=== PATIENT | female | born 1960 | race Caucasian/White ===

== ENCOUNTER → 2016-08-30 | Outpatient (CLI) | payer MEDICARE, OTHER ==
--- NOTE | 2016-08-30 09:56 | USB ---
Reason for exam: follow-up at short interval from prior study. History: Patient is postmenopausal and is nulliparous. Took estrogen for 7 years. Took progesterone for 7 years. Physical Findings: Nurse did not find any significant physical abnormalities on exam. US Breast RT Right breast ultrasound includes all four quadrants, the retroareolar region and axilla. Finding demonstrates 6 x 4 x 7mm oval, solid, hyperechoic lesion at 3 o'clock, significantly smaller when compared to previous. These results were verbally communicated with the patient and result sheet given to the patient on 08/30/16. ASSESSMENT: Benign, BI-RAD 2 RECOMMENDATION: Routine screening mammogram of both breasts. (patient due now for mammogram)
== END | disposition home or self-care (01) ==
LOC: RADUSWWP 08:32
PROVIDERS: ATTEND Surgery
DX: N63 Unspecified lump in breast (principal)

== ENCOUNTER → 2017-08-25 | Outpatient (CLI) | payer MEDICARE ==
[2017-08-25 13:31] LABS: Anion Gap 11 mmol/L; Blood Urea Nitrogen 12 mg/dL (7-17); Calcium 9.8 mg/dL (8.4-10.2); Carbon Dioxide 34 mmol/L (22-30); Chloride 98 mmol/L (98-107); Glucose 106 mg/dL (74-99); Potassium 4.7 mmol/L (3.5-5.1); Sodium 143 mmol/L (137-145)
[2017-08-25 13:47] LABS: T4, Free (Free Thyroxine) 1.25 ng/dL (0.78-2.19)
[2017-08-25 22:30] LABS: Hemoglobin A1C 6.3 % (4.0-6.0)
== END ==
LOC: LABWHC1 12:28
PROVIDERS: ATTEND Internal Medicine
DX: E11.65 Type 2 diabetes mellitus with hyperglycemia (principal); E03.9 Hypothyroidism, unspecified
CPT/HCPCS: 36415; 80048; 83036; 84439; 84443

== ENCOUNTER → 2017-10-20 | Outpatient (CLI) | payer MEDICARE ==
[2017-10-20 15:11] LABS: T4, Free (Free Thyroxine) 1.3 ng/dL (0.78-2.19)
[2017-10-20 20:21] LABS: Hemoglobin A1C 6.2 % (4.0-6.0)
== END | disposition home or self-care (01) ==
LOC: LABWHC1 13:41
PROVIDERS: ATTEND Internal Medicine
DX: E03.9 Hypothyroidism, unspecified (principal)
CPT/HCPCS: 36415; 83036; 84439; 84443

== ENCOUNTER → 2017-11-17 | Outpatient (CLI) | payer MEDICARE ==
--- NOTE | 2017-11-18 07:48 | MM ---
Reason for exam: additional evaluation requested from prior study. Last mammogram was performed 1 year and 9 months ago. History: Patient is postmenopausal and is nulliparous. Took estrogen for 1 year. Took progesterone for 1 year. Physical Findings: Nurse did not find any significant physical abnormalities on exam. MG 3D Diag Mammo W/Cad ANKIT Bilateral CC, MLO, and XCCL view(s) were taken. Prior study comparison: February 16, 2016, right breast MG 3d diag mammo w/cad RT. July 17, 2015, bilateral MG screening mammo w CAD. The breast tissue is almost entirely fat. There is no discrete abnormality. These results were verbally communicated with the patient and result sheet given to the patient on 11/17/17. ASSESSMENT: Negative, BI-RAD 1 RECOMMENDATION: Routine screening mammogram of both breasts in 1 year.
--- NOTE | 2017-11-18 08:26 | BD ---
EXAMINATION TYPE: Axial Bone Density DATE OF EXAM: 11/17/2017 COMPARISON: NONE CLINICAL HISTORY: Z 78.0, postmenopausal without hormone replacement therapy Height: 60 Weight: 217.3 FRAX RISK QUESTIONS: Alcohol (3 or more units per day): no Family History (Parent hip fracture): no Glucocorticoids (More than 3mos): no (Ex: prednisone, prednisolone, methylprednisolone, dexamethasone, and hydrocortisone). History of Fracture in Adulthood: no Secondary Osteoporosis: 1. Type 1 Diabetes: no 2. Hyperthyroidism: no 3. Menopause before 45: yes 4. Malnutrition: no 5. Chronic liver disease: no Rheumatoid Arthritis: no Current Tobacco Use: no RISK FACTORS HISTORY OF: Surgery to Spine/Hip(right/left)/Wrist (right/left): spine When: 1975 Family History of Osteoporosis: yes Active: yes Diet low in dairy products/other sources of calcium: no Postmenopausal woman: 2006 Lost more than 2 inches in height since high school: yes Frequent falls: no MEDICATIONS: vit d Thyroid Medications:synthroid How Long: since 1995 Additional History: EXAM MEASUREMENTS: Bone mineral densitometry was performed using the [employer] System. Bone mineral density about the R hip (g/cm2): 1.001 Bone mineral density about the L hip (g/cm2): 1.027 T Score values are as follows: -----R Neck: -0.3 -----L Neck: -0.1 -----R Total: -0.1 -----L Total: -0.1 Bone mineral density : baseline Bone mineral density about the L Wrist (g/cm2): 0.501 T Score values are as follows: -----Dist. R+U: -3.5 -----Prox. R+U: -2.5 -----Radius total: -2.9 Bone mineral density : baseline IMPRESSION: Normal bone density NOTE: T-SCORE=SD OF THE YOUNG ADULT MEAN.
== END | disposition home or self-care (01) ==
LOC: RADBDWWP 14:25
PROVIDERS: ATTEND Family Medicine
DX: R92.8 Other abnormal and inconclusive findings on diagnostic imaging of breast (principal); Z78.0 Asymptomatic menopausal state
CPT/HCPCS: 77080; 77066; G0279; 77062

== ENCOUNTER → 2019-07-16 | Day surgery (SDC) | payer MEDICARE ==
[2019-07-14 14:55] VITALS: BMI 42.0
[~2019-07-16] MED LIST: LACTATED RINGERS 1,000 ML IV SCH; LIDOCAINE 1% 20 ML VIAL (10MG/ML) FOR IV START INTRADERMA ONE; LIDOCAINE 1% INJ 10MG/ML (20 ML MDV) ONE; PROPOFOL 10 MG/ML 20 ML VIAL IV ONE
[2019-07-16 10:11] VITALS: RESP 16; TEMP 98.5
--- NOTE | 2019-07-16 10:48 | P.PCN ---
Date of Procedure: 07/16/19 Procedure(s) Performed: BRIEF HISTORY: Patient is a 58-year-old pleasant female scheduled for an elective colonoscopy as a part of screening for colorectal neoplasia PROCEDURE PERFORMED: Colonoscopy with biopsy. PREOPERATIVE DIAGNOSIS: Screening for colon cancer. IV sedation per Anesthesia. PROCEDURE: After informed consent was obtained, the patient, was brought into the endoscopy unit. IV sedation was administered by Anesthesia under continuous monitoring. Digital rectal examination was normal. Initially the Olympus CF-160 flexible video colonoscope was then inserted in the rectum, gradually advanced into the cecum without any difficulty. Careful examination was performed as the scope was gradually being withdrawn. Ileocecal valve and the appendiceal orifice were visualized and appeared normal. Prep was excellent. Mucosa of the cecum, ascending colon, transverse colon, descending colon, sigmoid colon, and rectum appeared normal. There was a 3-4 mm polyp noted in the proximal rectum that was removed by cold biopsy. In the distal rectum there was erythema noted with friability of the mucosa suspicious for rectal prolapse versus proctitis and hence biopsies were done from this area. Retroflexion was performed in the rectum and no lesions were seen. The patient tolerated the procedure well. IMPRESSION: 3-4 mm millimeters proximal rectal polyp status post removal by cold biopsy Mucosal erythema and friability of the distal rectum rule out proctitis versus rectal prolapse RECOMMENDATIONS: Findings of this examination were discussed with the patient as well as her family. She was advised to follow with the biopsy result. The biopsy shows an adenoma she can have a repeat colonoscopy in 5 years.
[2019-07-16 11:21] VITALS: BP 119/87; PULSE 84
== END ==
LOC: ORWHC2ENDO 09:26
PROVIDERS: ATTEND Internal Medicine Gastroenterology
DX: Z12.11 Encounter for screening for malignant neoplasm of colon (principal); D12.8 Benign neoplasm of rectum; K62.1 Rectal polyp; K62.6 Ulcer of anus and rectum; I10 Essential (primary) hypertension; E78.5 Hyperlipidemia, unspecified; J45.909 Unspecified asthma, uncomplicated; F41.9 Anxiety disorder, unspecified; F32.9 Major depressive disorder, single episode, unspecified; M19.90 Unspecified osteoarthritis, unspecified site; G43.909 Migraine, unspecified, not intractable, without status migrainosus; Z97.2 Presence of dental prosthetic device (complete) (partial); Z79.84 Long term (current) use of oral hypoglycemic drugs; Z79.890 Hormone replacement therapy; Z79.899 Other long term (current) drug therapy; Z88.0 Allergy status to penicillin
CPT/HCPCS: 88305; 45380; J2001; J2704

== ENCOUNTER 2022-06-13 07:52 | Day surgery (SDC) | payer MEDICARE ==
[2022-06-11 13:38] VITALS: BMI 40.8
[~2022-06-13 07:52] MED LIST changes: +LIDOCAINE 1% (10MG/ML) FOR IV START INTRADERMA PRN; -LIDOCAINE 1% 20 ML VIAL (10MG/ML) FOR IV START INTRADERMA ONE; -LIDOCAINE 1% INJ 10MG/ML (20 ML MDV) ONE; +ONDANSETRON 4 MG/2 ML VIAL IVP PRN; -PROPOFOL 10 MG/ML 20 ML VIAL IV ONE
[2022-06-13 08:26] VITALS: RESP 20; TEMP 97
[2022-06-13] MEDS ORDERED: PROPOFOL 10 MG/ML 20 ML VIAL IV ONE (08:28)
[2022-06-13 08:30] LABS: Glucose,Whole Blood 111 mg/dL (70-110)
--- NOTE | 2022-06-13 08:34 | P.GSHP ---
History of Present Illness H&P Date: 06/13/22 CHIEF COMPLAINT: Anemia HISTORY OF PRESENT ILLNESS: The patient is a 61-year-old female who presents with anemia. Upper and lower endoscopy were offered for further evaluation and management. PAST MEDICAL HISTORY: Please see list. PAST SURGICAL HISTORY: Please see list. MEDICATIONS: Please see list. ALLERGIES: Please see list. SOCIAL HISTORY: No illicit drug use FAMILY HISTORY: No reports of Crohn disease or ulcerative colitis. REVIEW OF ORGAN SYSTEMS: CONSTITUTIONAL: No reports of fevers or chills. PHYSICAL EXAM: VITAL SIGNS: Stable GENERAL: Well-developed pleasant in no acute distress. HEENT: No scleral icterus. Extraocular movements grossly intact. Moist buccal mucosa. NECK: Supple without lymphadenopathy. CHEST: Unlabored respirations. Equal bilateral excursions. CARDIOVASCULAR: Regular rate and rhythm. Distal 2+ pulses. ABDOMEN: Soft, nondistended. MUSCULOSKELETAL: No clubbing, cyanosis, or edema. ASSESSMENT: 1. Anemia PLAN: 1. Recommend proceeding with an upper and lower endoscopy Past Medical History Past Medical History: Asthma, GI Bleed, Hyperlipidemia, Osteoarthritis (OA), Thyroid Disorder Additional Past Medical History / Comment(s): hx of bleeding ulcer and esophogitis , anemia, hx of migraines, takes metformin states for weight loss, denies high blood pressure or diabetes, hypothyroid, reports possible mini stroke, stress incontinence History of Any Multi-Drug Resistant Organisms: None Reported Past Surgical History: Back Surgery Additional Past Surgical History / Comment(s): uterine polyp removed, LEEP with colposcopy, D&C, states has dillard patsy in back, rectal prolapse surgery, cosmetic eye surgery, EGD, colonscopy Past Anesthesia/Blood Transfusion Reactions: No Reported Reaction, Motion Sickness Additional Past Anesthesia/Blood Transfusion Reaction / Comment(s): had blood transfusion reports possible antibodies Past Psychological History: Anxiety, Depression Smoking Status: Never smoker Past Alcohol Use History: None Reported Past Drug Use History: None Reported - Past Family History Brother(s) Family Medical History: Cancer Additional Family Medical History / Comment(s): pancreatic, AAA Mother Family Medical History: Cancer Additional Family Medical History / Comment(s): lung Sister(s) Family Medical History: Deep Vein Thrombosis (DVT) Additional Family Medical History / Comment(s): AAA Father Additional Family Medical History / Comment(s): AAA Medications and Allergies Home Medications Medication Instructions Recorded Confirmed Type Cholecalciferol [Vitamin D3] 5,000 unit PO DAILY@1200 06/30/15 06/11/22 History Cyclobenzaprine [Flexeril] 10 mg PO HS 06/30/15 06/11/22 History DULoxetine HCL [Cymbalta] 120 mg PO DAILY 06/30/15 06/11/22 History Ferrous Sulfate [Feosol] 325 mg PO DAILY 06/30/15 06/11/22 History Fluticasone Propionate [Flovent 2 puff INHALATION BID 06/30/15 06/11/22 History Hfa 220MCG] Furosemide [Lasix] 40 mg PO DAILY 06/30/15 06/11/22 History Hydrocodone/Acetaminophen [[place] 1 tab PO Q6HR PRN 06/30/15 06/11/22 History 5-325] Loratadine [Claritin] 10 mg PO DAILY 06/30/15 06/11/22 History Montelukast Sodium [Singulair] 10 mg PO HS 06/30/15 06/11/22 History Potassium Chloride [Klor-Con] 20 meq PO DAILY 06/30/15 06/11/22 History Verapamil HCl [Verapamil ER] 120 mg PO DAILY 06/30/15 06/11/22 History metFORMIN HCL [Glucophage] 500 mg PO BID 06/30/15 06/11/22 History ALPRAZolam [Xanax] 0.25 mg PO BID PRN 07/14/19 06/11/22 History Albuterol Inhaler [Ventolin Hfa 1 - 2 puff INHALATION RT-Q6H PRN 07/14/19 06/11/22 History Inhaler] Atorvastatin [Lipitor] 80 mg PO HS 07/14/19 06/11/22 History Levothyroxine Sodium 100 mcg PO DAILY 07/14/19 06/11/22 History Multivitamins, Thera [Multivitamin 1 tab PO DAILY 07/14/19 06/11/22 History (formulary)] buPROPion XL [Wellbutrin Xl] 150 mg PO QAM 07/14/19 06/11/22 History Omeprazole 40 mg PO DAILY 06/11/22 06/11/22 History Vitamin B Complex 1 each PO 06/11/22 History Allergies Allergy/AdvReac Type Severity Reaction Status Date / Time Penicillins Allergy Rash/Hives Verified 06/11/22 13:12 Surgical - Exam Vital Signs Temp Pulse Resp BP Pulse Ox 97 F L 104 H 20 136/87 98 06/13/22 08:24 06/13/22 08:24 06/13/22 08:24 06/13/22 08:24 06/13/22 08:24 Results - Labs Abnormal Lab Results - Last 24 Hours (Table) 06/13/22 Range/Units 08:26 POC Glucose (mg/dL) 111 H (70-110) mg/dL
[2022-06-13 09:12] VITALS: BP 116/71; PULSE 78
--- NOTE | 2022-06-13 09:26 | P.PCN ---
Date of Procedure: 06/13/22 Description of Procedure: PREOPERATIVE DIAGNOSIS: Anemia GI bleed POSTOPERATIVE DIAGNOSIS: Gastroesophageal reflux disease. Morbid obesity. Gastritis. Diaphragmatic hiatal hernia OPERATION: Esophagogastroduodenoscopy with biopsies along antrum and duodenum SURGEON: Tonya Fierro MD ANESTHESIA: MAC. INDICATIONS: The patient is a 61-year-old female who presents with history of GI bleed and anemia. Benefits and risks of the procedure were described. Informed consent was obtained. DESCRIPTION: The patient was brought into the endoscopy suite and laid in the left lateral decubitus position. An Olympus gastroscope was passed along the posterior oropharynx down to the distal esophagus where the squamocolumnar junction was encountered at 30 cm from the incisors. The stomach was entered and no bile reflux was found. Additional findings are listed below. Biopsies with cold forceps were obtained of the antrum. The first through third portion of the duodenum was examined. Retroflexion of the scope confirmed Hill grade 4 lower esophageal valve. The squamocolumnar junction demonstrated LA grade B erosive esophagitis. The stomach was desufflated. The patient tolerated the procedure well. FINDINGS: Squamocolumnar junction 30 cm from the incisors. Diaphragmatic hiatus at 40 cm. Hiatal hernia, 10 cm, paraesophageal, fixed Hill grade 4 lower esophageal valve. LA grade B erosive esophagitis. Biopsies obtained of duodenum Chronic gastritis. Biopsies obtained RECOMMENDATIONS: 1. Upper endoscopy as needed. 2. Recommend esophagram 3. Recommend repair paraesophageal hiatal hernia for symptomatic anemia
--- NOTE | 2022-06-13 09:34 | P.PCN ---
Date of Procedure: 06/13/22 Description of Procedure: PREOPERATIVE DIAGNOSIS: GI bleed Anemia POSTOPERATIVE DIAGNOSIS: Poor prep with solid stool Constipation OPERATION: Colonoscopy to sigmoid colon, aborted due to poor prep SURGEON: Tonya Fierro MD. ANESTHESIA: MAC. INDICATIONS: The patient is a 61-year-old female who presents with anemia. Benefits and risks were described and informed consent was obtained. DESCRIPTION OF PROCEDURE: The patient had undergone bowel prep. The patient had been brought into the endoscopy room and laid in the left lateral decubitus position. After adequate intravenous sedation, the rectum was examined with 2% lidocaine jelly. External hemorrhoids were encountered. The rectal tone was within normal limits. No lesions were palpated in the rectal vault. An Olympus colonoscope was inserted and sigmoid colon were liquid and solid stools were found. Solid stool was obstructing passage of the scope beyond the distal sigmoid colon. The procedure was aborted. No inflamed hemorrhoids were identified. The colonoscope was removed. Withdrawal time was over 6 minutes. FINDINGS: [place] preparation quality scale 5 (1-5) External prolapsed hemorrhoids, grade 2 Scope advanced to the sigmoid colon. Poor prep with solid stool to distal sigmoid colon, nondiagnostic and aborted RECOMMENDATIONS: Recommend prolonged bowel prep 3-5 days. Repeat colonoscopy in 3 months, August 2022 Plan - Discharge Summary New Discharge Prescriptions: Continue Cholecalciferol [Vitamin D3 (25 Mcg = 1000 Iu)] 5,000 unit PO DAILY@1200 Ferrous Sulfate [Feosol] 325 mg PO DAILY metFORMIN HCL [Glucophage] 500 mg PO BID Hydrocodone/Acetaminophen [[place] 5-325] 1 tab PO Q6HR PRN PRN Reason: Pain Cyclobenzaprine [Flexeril] 10 mg PO HS Fluticasone Propionate [Flovent Hfa 220 mcg] 2 puff INHALATION BID DULoxetine HCL [Cymbalta] 120 mg PO DAILY Montelukast Sodium [Singulair] 10 mg PO HS Loratadine [Claritin] 10 mg PO DAILY Furosemide [Lasix] 40 mg PO DAILY Verapamil HCl [Verapamil ER] 120 mg PO DAILY Potassium Chloride [Klor-Con Packets] 20 meq PO DAILY buPROPion XL [Wellbutrin XL] 150 mg PO QAM Multivitamins, Thera [Multivitamin (formulary)] 1 tab PO DAILY Albuterol Inhaler [Ventolin Hfa Inhaler] 1 - 2 puff INHALATION RT-Q6H PRN PRN Reason: Shortness Of Breath ALPRAZolam [Xanax] 0.25 mg PO BID PRN PRN Reason: Anxiety Atorvastatin [Lipitor] 80 mg PO HS Levothyroxine Sodium 100 mcg PO DAILY Omeprazole 40 mg PO DAILY Vitamin B Complex 1 each PO Discharge Medication List Cholecalciferol [Vitamin D3 (25 Mcg = 1000 Iu)] 5,000 unit PO DAILY@1200 06/30/15 [History] Cyclobenzaprine [Flexeril] 10 mg PO HS 06/30/15 [History] DULoxetine HCL [Cymbalta] 120 mg PO DAILY 06/30/15 [History] Ferrous Sulfate [Feosol] 325 mg PO DAILY 06/30/15 [History] Fluticasone Propionate [Flovent Hfa 220 mcg] 2 puff INHALATION BID 06/30/15 [History] Furosemide [Lasix] 40 mg PO DAILY 06/30/15 [History] Hydrocodone/Acetaminophen [[place] 5-325] 1 tab PO Q6HR PRN 06/30/15 [History] Loratadine [Claritin] 10 mg PO DAILY 06/30/15 [History] Montelukast Sodium [Singulair] 10 mg PO HS 06/30/15 [History] Potassium Chloride [Klor-Con Packets] 20 meq PO DAILY 06/30/15 [History] Verapamil HCl [Verapamil ER] 120 mg PO DAILY 06/30/15 [History] metFORMIN HCL [Glucophage] 500 mg PO BID 06/30/15 [History] ALPRAZolam [Xanax] 0.25 mg PO BID PRN 07/14/19 [History] Albuterol Inhaler [Ventolin Hfa Inhaler] 1 - 2 puff INHALATION RT-Q6H PRN 07/14/19 [History] Atorvastatin [Lipitor] 80 mg PO HS 07/14/19 [History] Levothyroxine Sodium 100 mcg PO DAILY 07/14/19 [History] Multivitamins, Thera [Multivitamin (formulary)] 1 tab PO DAILY 07/14/19 [History] buPROPion XL [Wellbutrin XL] 150 mg PO QAM 07/14/19 [History] Omeprazole 40 mg PO DAILY 06/11/22 [History] Vitamin B Complex 1 each PO 06/11/22 [History] Follow up Appointment(s)/Referral(s): Tonya Fierro MD [STAFF PHYSICIAN] - 07/02/22 Patient Instructions/Handouts: *Surgery [facility] - (Anesthesia) Endoscopy Discharge Instructions, Hiatal Hernia (DC) Discharge Disposition: HOME SELF-CARE
== END 2022-06-13 10:11 | disposition home or self-care (01) ==
LOC: ORWHC2ENDO 07:52
PROVIDERS: ATTEND Surgery Plastic and Reconstructive Surgery
DX: K29.50 Unspecified chronic gastritis without bleeding (principal); E66.01 Morbid (severe) obesity due to excess calories; K44.9 Diaphragmatic hernia without obstruction or gangrene; K21.9 Gastro-esophageal reflux disease without esophagitis; K59.00 Constipation, unspecified; D50.0 Iron deficiency anemia secondary to blood loss (chronic); E78.5 Hyperlipidemia, unspecified; F32.A Depression, unspecified; F41.9 Anxiety disorder, unspecified; J45.909 Unspecified asthma, uncomplicated; M19.90 Unspecified osteoarthritis, unspecified site; Z79.51 Long term (current) use of inhaled steroids; Z79.84 Long term (current) use of oral hypoglycemic drugs; Z79.899 Other long term (current) drug therapy; Z88.0 Allergy status to penicillin
CPT/HCPCS: 88305; 43239; 45330; J2704; 45378

== ENCOUNTER → 2022-07-17 | Outpatient (CLI) | payer MEDICARE ==
[2022-07-17 23:29] LABS: Basophils # (A) 0.02 X 10*3/uL (0.00-0.10); Basophils % (A) 0.3 %; Eosinophils # (A) 0.11 X 10*3/uL (0.04-0.35); Eosinophils % (A) 1.5 %; HCT 45.1 % (37.2-46.3); HGB 13.9 g/dL (12.0-15.0); Immature Grans, Automated 0.6 %; Lymphocytes # (A) 1.89 X 10*3/uL (0.90-5.00); Lymphocytes % (A) 26.5 %; MCH 28.3 pg (27.0-32.0); MCHC 30.8 g/dL (32.0-37.0); MCV 91.9 fL (80.0-97.0); Monocytes # (A) 0.55 X 10*3/uL (0.20-1.00); Monocytes % (A) 7.7 %; NRBC Per 100 WBC 0 /100 WBCS (0.0-0.0); Neutrophils # (A) 4.51 X 10*3/uL (1.80-7.70); Neutrophils % (A) 63.4 %; Platelet Count 259 X 10*3/uL (140-440); RBC 4.91 X 10*6/uL (4.10-5.20); RDW 14.4 % (11.5-14.5); WBC 7.12 X 10*3/uL (4.50-10.00)
--- NOTE | 2022-07-18 09:29 | CT ---
EXAMINATION TYPE: CT chest w con CT DLP: 509.20 mGycm, Automated exposure control for dose reduction was used. DATE OF EXAM: 07/17/2022 4:22 PM COMPARISON: CT chest 06/07/2011. CLINICAL INDICATION:Female, 61 years old with history of R22.2, hiatal hernia and chest discomfort af ter eating TECHNIQUE: Multiple axial images were obtained through the chest. Sagittal and coronal reformats were created for review. Contrast used:70 mL of Isovue 300 with IV Contrast Oral contrast used: none. FINDINGS: LUNGS/ PLEURA: No evidence for focal consolidation, pneumothorax or pleural effusion. Mild atelectasi s changes in the left lower lung secondary to large hiatal hernia. AIRWAY: Patent and unremarkable. HEART: Size within normal limits. MEDIASTINUM: No gross evidence of adenopathy. Containing part of the hiatal hernia in the lower aspec t. VASCULATURE: No aortic aneurysm. MUSCULOSKELETAL: No acute osseous abnormalities, fixation hardware is seen within the back which appe ars intact. There is postsurgical alignment of the spine. Scoliosis changes are present. SOFT TISSUES/LYMPH NODES: Unremarkable. LOWER NECK: No significant findings. UPPER ABDOMEN: There is a large hiatal hernia with majority of the stomach sitting above the diaphrag m. IMPRESSION: Large hiatal hernia with the majority of the stomach sitting above the diaphragm.
== END | disposition home or self-care (01) ==
LOC: RADCTMAIN 15:48
PROVIDERS: ATTEND Surgery Plastic and Reconstructive Surgery
DX: K44.9 Diaphragmatic hernia without obstruction or gangrene (principal); R22.2 Localized swelling, mass and lump, trunk; D50.9 Iron deficiency anemia, unspecified
CPT/HCPCS: 85025; 71260; Q9967

== ENCOUNTER → 2023-02-26 | Outpatient (CLI) | payer MEDICARE ==
--- NOTE | 2023-02-27 08:54 | CA ---
Transthoracic Echo Report Name: Charlotte Munson Age: 62 Gender: F : 1960 Exam Date: 02/26/2023 17:26 Exam Location: [facility] Ht (in): 60 Wt (lb): 209 Ordering Physician: Doc Escobar MD Attending/Referring Phys: Brewery Representative Vivienne Coley [facility] Procedure CPT: Indications: Z82.49 FAMILY HX OF ISCHEM HEART DIS AND OTH DIS O Cardiac Hx: Technical Quality: Fair Contrast 1: Total Dose (mL): Contrast 2: Total Dose (mL): MEASUREMENTS (Male / Female) Normal Values 2D ECHO LV Diastolic Diameter PLAX 3.6 cm 4.2 - 5.9 / 3.9 - 5.3 cm LV Systolic Diameter PLAX 2.7 cm IVS Diastolic Thickness 1.0 cm 0.6 - 1.0 / 0.6 - 0.9 cm LVPW Diastolic Thickness 1.0 cm 0.6 - 1.0 / 0.6 - 0.9 cm LV Relative Wall Thickness 0.5 LVOT Diameter 2.0 cm Ascending Aorta Diameter 4.1 cm M-MODE Aortic Root Diameter MM 3.2 cm AV Cusp Separation MM 2.4 cm DOPPLER AV Peak Velocity 146.9 cm/s AV Peak Gradient 8.6 mmHg AV Mean Velocity 101.3 cm/s AV Mean Gradient 4.5 mmHg AV Velocity Time Integral 24.5 cm LVOT Peak Velocity 102.9 cm/s LVOT Peak Gradient 4.2 mmHg LVOT Velocity Time Integral 18.0 cm LVOT Stroke Volume 55.0 cm??? LVOT Stroke Volume Index 28.9 ml/m??? LVOT Cardiac Index 2483.6 cm???/min???m??? AV Area Cont Eq vti 2.2 cm??? AV Area Cont Eq pk 2.1 cm??? Mitral E Point Velocity 61.4 cm/s Mitral A Point Velocity 74.9 cm/s Mitral E to A Ratio 0.8 MV Deceleration Time 150.3 ms LV E' Lateral Velocity 10.2 cm/s Mitral E to LV E' Lateral Ratio 6.0 LV E' Septal Velocity 6.0 cm/s Mitral E to LV E' Septal Ratio 10.3 TR Peak Velocity 194.0 cm/s TR Peak Gradient 15.1 mmHg Right Atrial Pressure 3.0 mmHg Pulmonary Artery Systolic Pressu 18.1 mmHg Right Ventricular Systolic Press 18.1 mmHg FINDINGS Left Ventricle Mildly increased left ventricular wall thickness. Left ventricular cavity size normal. Normal left ventricular systolic function with no obvious regional wall motion abnormalities. Left ventricular ejection fraction is estimated at 55- 60%. Right Ventricle Mild right ventricular dilatation. Right Atrium Normal right atrial size. Left Atrium Normal left atrial size. Mitral Valve Structurally normal mitral valve.no mitral stenosis, regurgitation or prolapse. Aortic Valve Trileaflet aortic valve. Trace aortic regurgitation. Tricuspid Valve Structurally normal tricuspid valve. Trace tricuspid regurgitation. Pulmonic Valve Structurally normal pulmonic valve. No pulmonic regurgitation. Pericardium No pericardial effusion. Aorta Normal size aortic root and mildly dilated proximal ascending aorta. CONCLUSIONS 1. Normal left ventricular size and systolic function 2. Trace tricuspid and aortic regurgitation Previewed by: Dr. Joshua Forman MD (Electronically Signed) Final Date: 27 February 2023 08:53
== END | disposition home or self-care (01) ==
LOC: RADECHMAIN 17:22
PROVIDERS: ATTEND Family Medicine
DX: I08.2 Rheumatic disorders of both aortic and tricuspid valves (principal); Z82.49 Family history of ischemic heart disease and other diseases of the circulatory system
CPT/HCPCS: 93306

== ENCOUNTER 2023-09-30 18:41 | Inpatient (IN) | payer MEDICARE ==
[2023-09-30] MEDS: SODIUM CHLORIDE 0.9% 1,000 ML IV SCH (19:21)
[2023-09-30 19:28] LABS: Basophils % (A) 1 %; Eosinophils # (A) 0.1 k/uL (0-0.7); Eosinophils % (A) 1 %; HCT 42.3 % (34.0-46.0); HGB 14.1 gm/dL (11.4-16.0); Lymphocytes # (A) 0.2 k/uL (1.0-4.8); Lymphocytes % (A) 3 %; MCH 30.3 pg (25.0-35.0); MCHC 33.4 g/dL (31.0-37.0); MCV 90.8 fL (80.0-100.0); Mean Platelet Volume 8.1; Monocytes # (A) 0.2 k/uL (0-1.0); Monocytes % (A) 2 %; Neutrophils # (A) 6.3 k/uL (1.3-7.7); Neutrophils % (A) 93 %; Platelet Count 203 k/uL (150-450); RBC 4.66 m/uL (3.80-5.40); RDW 12.9 % (11.5-15.5); WBC 6.8 k/uL (3.8-10.6)
[2023-09-30 19:36] LABS: INR 0.9 (<1.2); Partial Thromboplastin Time 25.1 sec (22.0-30.0); Prothrombin Time 10.1 sec (10.0-12.5)
[2023-09-30 19:42] LABS: ALT 29 U/L (4-34); AST 33 U/L (14-36); African American GFR (CKD) >90 (>60 ml/min/1.73 sqM); Albumin 3.9 g/dL (3.5-5.0); Alkaline Phosphatase 103 U/L (38-126); Anion Gap 12 mmol/L; Blood Urea Nitrogen 20 mg/dL (7-17); Calcium 8.7 mg/dL (8.4-10.2); Carbon Dioxide 25 mmol/L (22-30); Chloride 96 mmol/L (98-107); Glucose 99 mg/dL (74-99); Non-African American GFR(CKD) 80 (>60 ml/min/1.73 sqM); Potassium 3.4 mmol/L (3.5-5.1); Sodium 133 mmol/L (137-145); Total Bilirubin 0.8 mg/dL (0.2-1.3); Total Protein 6.6 g/dL (6.3-8.2)
--- NOTE | 2023-09-30 20:21 | CT ---
EXAMINATION TYPE: CT brain wo con CT DLP: 1075.4 mGycm, Automated exposure control for dose reduction was used. DATE OF EXAM: 09/30/2023 8:12 PM COMPARISON: None. CLINICAL INDICATION:Female, 62 years old with history of ams, AMS TECHNIQUE: Brain: Axial CT images of the brain were obtained with coronal and sagittal reformats created and rev iewed. Contrast used: None. Oral contrast used: None. FINDINGS: Brain: Extra-axial spaces: No abnormal extra-axial fluid collections. Ventricular system: Within normal limits Cerebral parenchyma: No acute intraparenchymal hemorrhage or mass effect. The donaldson-white junction is well differentiated. Scattered hypoattenuating areas are seen within the white matter. Cerebellum: Unremarkable. Mass effect: No evidence of midline shift. Intracranial vasculature: Atherosclerotic calcifications of the intracranial vessels. Soft tissues: Normal. Calvarium/osseous structures: No depressed skull fracture. Paranasal sinuses and mastoid air cells: Mild scattered paranasal sinus disease. Visualized orbits: Orbital contents are intact. IMPRESSION: 1. No acute intracranial process. 2. Nonspecific white matter changes, likely secondary to chronic small vessel ischemic disease.
--- NOTE | 2023-09-30 20:28 | XR ---
EXAMINATION TYPE: XR chest 2V DATE OF EXAM: 09/30/2023 8:22 PM CLINICAL INDICATION:Female, 62 years old with history of Fever; [facility] COMPARISON: CT chest 07/17/2022 TECHNIQUE: XR chest 2V Frontal and lateral views of the chest. FINDINGS: Lungs/Pleura: Bilateral hazy airspace opacities are identified in the lung bases. No evidence of larg e effusion or pneumothorax. Pulmonary vascularity: Unremarkable. Heart/mediastinum: Cardiomediastinal silhouette is unremarkable. Redemonstrated large hiatal hernia contained within the left hemithorax. Musculoskeletal: No acute osseous pathology. Fixation hardware is seen extending through the thoracic spine. IMPRESSION: 1. Bilateral hazy airspace opacities which may represent developing infectious/inflammatory process. 2. Redemonstrated large hiatal hernia.
--- NOTE | 2023-09-30 20:29 | ED ---
General Adult HPI - General Chief complaint: Altered Mental Status Stated complaint: AMS Time Seen by Provider: 09/30/23 19:10 Source: patient, EMS Mode of arrival: EMS Limitations: no limitations - History of Present Illness Initial comments: Dictation was produced using [employer] dictation software. please excuse any grammatical, word or spelling errors. Chief Complaint: 62-year-old female presents for altered mental status History of Present Illness: Patient 62-year-old female presents with altered mental status. Patient was seen driving erratically by law enforcement. Patient was pulled over and was brought to the emergency department after she was thought to be altered. Patient states that she was dog sitting and on her way home. Patient denies any complaints. Some clear what patient's baseline is. She has history of asthma, paraesophageal hernia dyslipidemia and thyroid disease. The ROS documented in this emergency department record has been reviewed and confirmed by me. Those systems with pertinent positive or negative responses have been documented in the HPI. All other systems are other negative and/or noncontributory. - Related Data Home Medications Medication Instructions Recorded Confirmed DULoxetine HCL [Cymbalta] 120 mg PO DAILY 06/30/15 09/30/23 Loratadine [Claritin] 10 mg PO DAILY 06/30/15 09/30/23 Montelukast Sodium [Singulair] 10 mg PO DAILY 06/30/15 09/30/23 Verapamil HCl [Verapamil ER] 120 mg PO DAILY 06/30/15 09/30/23 Albuterol Inhaler [Ventolin Hfa 1 puff INHALATION RT-Q6H PRN 07/14/19 09/30/23 Inhaler] Levothyroxine Sodium 100 mcg PO DAILY 07/14/19 09/30/23 Atorvastatin Calcium [Lipitor] 80 mg PO DAILY 09/30/23 09/30/23 Fluticasone Propion/Salmeterol 2 puff INHALATION RT-BID 09/30/23 09/30/23 [Advair Hfa 115-21 Mcg Inhaler] Furosemide [Lasix] 40 mg PO DAILY 09/30/23 09/30/23 Pantoprazole [Protonix] 40 mg PO DAILY 09/30/23 09/30/23 Potassium Chloride ER [K-Dur 20] 20 meq PO DAILY 09/30/23 09/30/23 buPROPion XL [Wellbutrin XL] 300 mg PO DAILY 09/30/23 09/30/23 Allergies Allergy/AdvReac Type Severity Reaction Status Date / Time Penicillins Allergy Rash/Hives Verified 09/30/23 20:05 Review of Systems ROS Statement: Those systems with pertinent positive or pertinent negative responses have been documented in the HPI. ROS Other: All systems not noted in ROS Statement are negative. Past Medical History Past Medical History: Asthma, GI Bleed, Hyperlipidemia, Osteoarthritis (OA), Thyroid Disorder Additional Past Medical History / Comment(s): hx of bleeding ulcer and esophogitis , anemia, hx of migraines, takes metformin states for weight loss, denies high blood pressure or diabetes, hypothyroid, reports possible mini stroke, stress incontinence History of Any Multi-Drug Resistant Organisms: None Reported Past Surgical History: Back Surgery Additional Past Surgical History / Comment(s): uterine polyp removed, LEEP with colposcopy, D&C, states has dillard patsy in back, rectal prolapse surgery, cosmetic eye surgery, EGD, colonscopy Past Anesthesia/Blood Transfusion Reactions: No Reported Reaction, Motion Sickness Additional Past Anesthesia/Blood Transfusion Reaction / Comment(s): had blood transfusion reports possible antibodies Past Psychological History: Anxiety, Depression Smoking Status: Never smoker Past Alcohol Use History: None Reported Past Drug Use History: None Reported - Past Family History Brother(s) Family Medical History: Cancer Additional Family Medical History / Comment(s): pancreatic, AAA Mother Family Medical History: Cancer Additional Family Medical History / Comment(s): lung Sister(s) Family Medical History: Deep Vein Thrombosis (DVT) Additional Family Medical History / Comment(s): AAA Father Additional Family Medical History / Comment(s): AAA General Exam - General Exam Comments Initial Comments: PHYSICAL EXAM: General Impression: Alert and oriented x3, not in acute distress HEENT: Normocephalic atraumatic, extra-ocular movements intact, pupils equal and reactive to light bilaterally, mucous membranes moist. Cardiovascular: Heart regular rate and rhythm Chest: Able to complete full sentences, no retractions, no tachypnea Abdomen: abdomen soft, non-tender, non-distended, no organomegaly Musculoskeletal: Pulses present and equal in all extremities, no peripheral e triston Motor: no focal deficits noted Neurological: CN II-XII grossly intact, no focal motor or sensory deficits noted Skin: Intact with no visualized rashes Psych: Normal affect and mood Limitations: no limitations Course Vital Signs 09/30/23 09/30/23 18:44 20:53 Temperature 102.9 F H 99.8 F H Pulse Rate 112 H 89 Respiratory 18 19 Rate Blood Pressure 123/87 118/73 O2 Sat by Pulse 94 L 95 Oximetry - Reevaluation(s) Reevaluation #1: 09/30/23 20:29 Patient seen and evaluated in bed #3. Vital signs upon arrival shows temperature 102.9, rest of l vital signs within acceptable limits. EKG Findings - EKG Comments: EKG Findings:: My EKG interpretation: Ventricular rate 107, sinus tachycardia,. 139, cures 90, QTc 412. No NV prolongation, no QTC prolongation, no ST or T-wave changes noted. Overall, this EKG is unremarkable Medical Decision Making - Medical Decision Making Was pt. sent in by a medical professional or institution (, PA, FOURDRINIER MACHINE TENDER, urgent care, hospital, or care home...) When possible be specific @ -No Did you speak to anyone other than the patient for history (EMS, parent, family, police, friend...)? What history was obtained from this source @ -EMS who provided report to nurse Did you review nursing and triage notes (agree or disagree)? Why? @ -I reviewed and agree with nursing and triage notes Were old charts reviewed (outside hosp., previous admission, EMS record, old EKG, old radiological studies, urgent care reports/EKG's, care home records)? Report findings @ -No old charts were reviewed Differential Diagnosis (chest pain, altered mental status, abdominal pain women, abdominal pain men, vaginal bleeding, musculoskeletal, weakness, fever, dyspnea, syncope, headache, dizziness, GI bleed, back pain, seizure, CVA, palpatations, mental health)? @ -Differential Fever: Pneumonia, viral URI, endocarditis, myocarditis, pericarditis, otitis, sinusitis, peritonsillar Abscess, retropharyngeal Abscess, epiglottitis, peritonitis, appendicitis, Leeanna cystitis, diverticulitis, hepatitis, colitis, UTI, PID, TOA, pyelonephritis, prostatitis, epididymitis, meningitis, encephalit is, pulmonary embolism, CVA, thyroid storm, pancreatitis, adrenal crisis, cavernous sinus thrombosis, this is not meant to be an all-inclusive list. EKG interpreted by me (3pts min.). @ -Pending X-rays interpreted by me (1pt min.). @ -Two-view chest x-ray shows bilateral hazy airspace opacities concerning for pneumonia CT interpreted by me (1pt min.). @ -CT brain is nonacute U/S interpreted by me (1pt. min.). @ -None done What testing was considered but not performed or refused? (CT, X-rays, U/S, labs)? Why? @ -None What meds were considered but not given or refused? Why? @ -None Did you discuss the management of the patient with other professionals (professionals i.e. , PA, FOURDRINIER MACHINE TENDER, lab, RT, psych nurse, social media executive, event specialist product demonstrator, teacher, rating officer, top case assembler)? Give summary @ -Case discussed with hospitalist for admission Was smoking cessation discussed for >3mins.? @ -No Was critical care preformed (if so, how long)? @ -No Were there social determinants of health that impacted care today? How? (Homelessness, low income, unemployed, alcoholism, drug addiction, transpor tation, low edu. Level, literacy, decrease access to med. care, shelter, rehab)? @ -No Was there de-escalation of care discussed even if they declined (Discuss DNR or withdrawal of care, Hospice)? DNR status @ -No What co-morbidities impacted this encounter? (DM, HTN, Smoking, COPD, CAD, Cancer, CVA, ARF, Chemo, Hep., AIDS, mental health diagnosis, sleep apnea, morbid obesity)? @ -None Was patient admitted / discharged? Hospital course, mention meds given and route, prescriptions, significant lab abnormalities, going to OR and other pertinent info. @ -62-year-old female presents to the emergency department for altered mental status. Vital signs upon arrival shows pyrexia of 102.9. Heart rate of 112, rest of vital signs within acceptable limits. Laboratory evaluation obtained. No leukocytosis. Coag panel is negative. Metabolic panel is within acceptable limits. Chest x-ray shows pneumonia. CT scan the brain is negative. Patient started on antibiotics. Pending viral swabs. Patient be admitted to observation. Undiagnosed new problem with uncertain prognosis? @ -No Drug Therapy requiring intensive monitoring for toxicity (Heparin, Nitro, Insulin, Cardizem)? @ -No Were any procedures done? @ -No Diagnosis/symptom? Acute, or Chronic, or Acute on Chronic? Uncomplicated (without systemic symptoms) or Complicated (systemic symptoms)? @ -Pneumonia Side effects of treatment? @ -No Exacerbation, Progression, or Severe Exacerbation? @ -No Poses a threat to life or bodily function? How? (Chest pain, [place], [place], pneumonia, PE, COPD, DKA, ARF, appy, cholecystitis, CVA, Diverticulitis, Homicidal, Suicidal, threat to staff... and all critical care pts) @ -yes - Lab Data Result diagrams: 09/30/23 19:18 09/30/23 19:18 Lab Results 09/30/23 09/30/23 09/30/23 Range/Units 19:18 19:18 19:18 WBC 6.8 (3.8-10.6) k/uL RBC 4.66 (3.80-5.40) m/uL Hgb 14.1 (11.4-16.0) gm/dL Hct 42.3 (34.0-46.0) % MCV 90.8 (80.0-100.0) fL MCH 30.3 (25.0-35.0) pg MCHC 33.4 (31.0-37.0) g/dL RDW 12.9 (11.5-15.5) % Plt Count 203 (150-450) k/uL MPV 8.1 Neutrophils % 93 % Lymphocytes % 3 % Monocytes % 2 % Eosinophils % 1 % Basophils % 1 % Neutrophils # 6.3 (1.3-7.7) k/uL Lymphocytes # 0.2 L (1.0-4.8) k/uL Monocytes # 0.2 (0-1.0) k/uL Eosinophils # 0.1 (0-0.7) k/uL Basophils # 0.0 (0-0.2) k/uL PT 10.1 (10.0-12.5) sec INR 0.9 (<1.2) APTT 25.1 (22.0-30.0) sec Sodium 133 L (137-145) mmol/L Potassium 3.4 L (3.5-5.1) mmol/L Chloride 96 L (98-107) mmol/L Carbon Dioxide 25 (22-30) mmol/L Anion Gap 12 mmol/L BUN 20 H (7-17) mg/dL Creatinine 0.80 (0.52-1.04) mg/dL Est GFR (CKD-EPI)AfAm >90 (>60 ml/min/1.73 sqM) Est GFR (CKD-EPI)NonAf 80 (>60 ml/min/1.73 sqM) Glucose 99 (74-99) mg/dL Plasma Lactic Acid Rodríguez (0.7-2.0) mmol/L Calcium 8.7 (8.4-10.2) mg/dL Total Bilirubin 0.8 (0.2-1.3) mg/dL AST 33 (14-36) U/L ALT 29 (4-34) U/L Alkaline Phosphatase 103 (38-126) U/L Total Protein 6.6 (6.3-8.2) g/dL Albumin 3.9 (3.5-5.0) g/dL Urine Color Urine Appearance (Clear) Urine pH (5.0-8.0) Ur Specific [place] (1.001-1.035) Urine Protein (Negative) Urine Glucose (UA) (Negative) Urine Ketones (Negative) Urine Blood (Negative) Urine Nitrite (Negative) Urine Bilirubin (Negative) Urine Urobilinogen (<2.0) mg/dL Ur Leukocyte Esterase (Negative) 09/30/23 09/30/23 Range/Units 19:18 20:53 WBC (3.8-10.6) k/uL RBC (3.80-5.40) m/uL Hgb (11.4-16.0) gm/dL Hct (34.0-46.0) % MCV (80.0-100.0) fL MCH (25.0-35.0) pg MCHC (31.0-37.0) g/dL RDW (11.5-15.5) % Plt Count (150-450) k/uL MPV Neutrophils % % Lymphocytes % % Monocytes % % Eosinophils % % Basophils % % Neutrophils # (1.3-7.7) k/uL Lymphocytes # (1.0-4.8) k/uL Monocytes # (0-1.0) k/uL Eosinophils # (0-0.7) k/uL Basophils # (0-0.2) k/uL PT (10.0-12.5) sec INR (<1.2) APTT (22.0-30.0) sec Sodium (137-145) mmol/L Potassium (3.5-5.1) mmol/L Chloride (98-107) mmol/L Carbon Dioxide (22-30) mmol/L Anion Gap mmol/L BUN (7-17) mg/dL Creatinine (0.52-1.04) mg/dL Est GFR (CKD-EPI)AfAm (>60 ml/min/1.73 sqM) Est GFR (CKD-EPI)NonAf (>60 ml/min/1.73 sqM) Glucose (74-99) mg/dL Plasma Lactic Acid Rodríguez 1.5 (0.7-2.0) mmol/L Calcium (8.4-10.2) mg/dL Total Bilirubin (0.2-1.3) mg/dL AST (14-36) U/L ALT (4-34) U/L Alkaline Phosphatase (38-126) U/L Total Protein (6.3-8.2) g/dL Albumin (3.5-5.0) g/dL Urine Color Colorless Urine Appearance Clear (Clear) Urine pH 6.0 (5.0-8.0) Ur Specific [place] 1.005 (1.001-1.035) Urine Protein Negative (Negative) Urine Glucose (UA) Negative (Negative) Urine Ketones Negative (Negative) Urine Blood Negative (Negative) Urine Nitrite Negative (Negative) Urine Bilirubin Negative (Negative) Urine Urobilinogen <2.0 (<2.0) mg/dL Ur Leukocyte Esterase Negative (Negative) Disposition Clinical Impression: Pneumonia Disposition: ADMITTED IP TO THIS HOSP Condition: Fair Referrals: Doc Escobar MD [Primary Care Provider] - 1-2 days Decision Time: 21:12
[2023-09-30] MEDS ORDERED: PNEUMONIA PROTOCOL UTILIZED 1 EACH MISC PO PRN (21:04)
[2023-09-30 21:08] LABS: Appearance,Urine Clear (Clear); Bilirubin,Urine Negative (Negative); Blood,Urine Negative (Negative); Color,Urine Colorless; Glucose,Urine (UA) Negative (Negative); Ketones,Urine Negative (Negative); Leukocyte Esterase,Urine Negative (Negative); Nitrite,Urine Negative (Negative); Protein,Urine Negative (Negative); Specific Gravity,Urine 1.005 (1.001-1.035); Urobilinogen,Urine <2.0 mg/dL (<2.0)
[2023-09-30] MEDS: ACETAMINOPHEN TAB 500 MG TAB PO STA (21:36)
[2023-10-01] MEDS: AZITHROMYCIN 500 MG TAB PO SCH (08:35)
[2023-10-01] MEDS: ATORVASTATIN 80 MG TAB PO SCH (08:35)
[2023-10-01] MEDS: LORATADINE 10 MG TAB PO SCH (08:36)
[2023-10-01] MEDS: MONTELUKAST 10 MG TAB PO SCH (08:36)
[2023-10-01] MEDS: PANTOPRAZOLE 40 MG TABLET PO SCH (08:36)
[2023-10-01] MEDS: DULoxetine HCL 60 MG CAPSULE.DR PO SCH (08:36)
[2023-10-01] MEDS: FUROSEMIDE 40 MG TAB PO SCH (08:36)
[2023-10-01] MEDS: POTASSIUM CHLORIDE ER 20 MEQ TAB.ER PO SCH (08:36)
[2023-10-01] MEDS: LEVOTHYROXINE 100 MCG TAB PO SCH (08:36)
[2023-10-01] MEDS: buPROPion XL 300 MG TAB.ER.24H PO SCH (08:36)
[2023-10-01] MEDS: ACETAMINOPHEN TAB 325 MG TAB PO PRN (08:58)
[2023-10-01] MEDS: VERAPAMIL SR 120 MG TABLET.ER PO SCH (08:59)
--- NOTE | 2023-10-01 18:40 | US ---
EXAMINATION TYPE: US carotid duplex BILAT DATE OF EXAM: 10/01/2023 COMPARISON: NONE CLINICAL INDICATION: Female, 62 years old with history of Loss of memory; memory loss TECHNIQUE: Carotid duplex ultrasound examination. Indirect Doppler criteria was utilized. FINDINGS: EXAM MEASUREMENTS: RIGHT: Peak Systolic Velocity (PSV) cm/sec ----- Right CCA: 66.9 ----- Right ICA: 81.4 ----- Right ECA: 74.9 ICA/CCA ratio: 1.2 RIGHT: End Diastole cm/sec ----- Right CCA: 29.6 ----- Right ICA: 34.8 ----- Right ECA: 11.5 LEFT: Peak Systolic Velocity (PSV) cm/sec ----- Left CCA: 63.3 ----- Left ICA: 137.8 ----- Left ECA: 87.9 ICA/CCA ratio: 2.2 LEFT: End Diastole cm/sec ----- Left CCA: 21.0 ----- Left ICA: 51.1 ----- Left ECA: 10.2 VERTEBRALS (direction of flow): Right Vertebral: Antegrade Left Vertebral: Antegrade Rhythm: Normal BRUSH AND BROOM CLIPPER NOTES: Mild plaque seen in bilat bulbs. Left ICA is tortuous IMPRESSION: 1. 50-69 % stenosis of the left carotid bifurcation. 2. Less than 50% stenosis of the right carotid bifurcation. Criteria for Assigning % of Stenosis / Diameter reduction (Estimation based on the indirect measurements of the internal carotid artery velocities (ICA PSV). 1. Normal (no stenosis)=ICA PSV < 125 cm/s: ratio < 2.0: ICA EDV<40 cm/s. 2. Less than 50% stenosis=ICA PSV < 125 cm/s: ratio < 2.0: ICA EDV<40 cm/s. 3. 50 to 69% stenosis=ICA PSV of 125 to 230 cm/s: ration 2.0 ? 4.0: ICA EDV 40-100 cm/s. 4. Greater than 70% stenosis to near occlusion= ICA PSV > 230 cm/s: ratio > 4.0: ICA EDV > 100 cm/s. 5. Near occlusion= ICA PSV velocities may be low or undetectable: variable ratio and ICA EDV. 6. Total occlusion=unable to detect flow.
[2023-10-01] MEDS: ALBUTEROL NEBULIZED 2.5 MG/3 ML INHALATION PRN (19:27)
[2023-10-01] MEDS: SYMBICORT 160-4.5 MCG INHALER INHALATION SCH (19:27)
--- NOTE | 2023-10-01 21:49 | P.HPIM ---
History of Present Illness H&P Date: 10/01/23 Chief Complaint: Confusion This is a 62-year-old white female with known history of hypertension who was found somewhat disoriented and confused. Initial workup does show probable pneumonia. I do suspect element of infection which is causing her to act inappropriately. She is seen this morning in the emergency room quite weak. She has never history of altered mental status. She has significant paraesophageal hernia which is going to be repaired in the next month. No history of CVA or stroke. She is a non-smoker. Review of Systems Constitutional: Reports as per HPI, Reports malaise Eyes: denies blurred vision, denies pain Ears, nose, mouth and throat: Denies headache, Denies sore throat Cardiovascular: Denies chest pain, Denies shortness of breath Respiratory: Reports as per HPI Gastrointestinal: Denies abdominal pain, Denies diarrhea, Denies nausea, Denies vomiting Musculoskeletal: Denies myalgias Past Medical History Past Medical History: Asthma, GI Bleed, Hyperlipidemia, Osteoarthritis (OA), Thyroid Disorder Additional Past Medical History / Comment(s): hx of bleeding ulcer and esophogitis , anemia, hx of migraines, takes metformin states for weight loss, denies high blood pressure or diabetes, hypothyroid, reports possible mini stroke, stress incontinence History of Any Multi-Drug Resistant Organisms: None Reported Past Surgical History: Back Surgery Additional Past Surgical History / Comment(s): uterine polyp removed, LEEP with colposcopy, D&C, states has dillard patsy in back, rectal prolapse surgery, cosmetic eye surgery, EGD, colonscopy Past Anesthesia/Blood Transfusion Reactions: No Reported Reaction, Motion Sickness Additional Past Anesthesia/Blood Transfusion Reaction / Comment(s): had blood transfusion reports possible antibodies Past Psychological History: Anxiety, Depression Smoking Status: Never smoker Past Alcohol Use History: None Reported Past Drug Use History: None Reported - Past Family History Brother(s) Family Medical History: Cancer Additional Family Medical History / Comment(s): pancreatic, AAA Mother Family Medical History: Cancer Additional Family Medical History / Comment(s): lung Sister(s) Family Medical History: Deep Vein Thrombosis (DVT) Additional Family Medical History / Comment(s): AAA Father Additional Family Medical History / Comment(s): AAA Medications and Allergies Home Medications Medication Instructions Recorded Confirmed Type DULoxetine HCL [Cymbalta] 120 mg PO DAILY 06/30/15 09/30/23 History Loratadine [Claritin] 10 mg PO DAILY 06/30/15 09/30/23 History Montelukast Sodium [Singulair] 10 mg PO DAILY 06/30/15 09/30/23 History Verapamil HCl [Verapamil ER] 120 mg PO DAILY 06/30/15 09/30/23 History Albuterol Inhaler [Ventolin Hfa 1 puff INHALATION RT-Q6H PRN 07/14/19 09/30/23 History Inhaler] Levothyroxine Sodium 100 mcg PO DAILY 07/14/19 09/30/23 History Atorvastatin Calcium [Lipitor] 80 mg PO DAILY 09/30/23 09/30/23 History Fluticasone Propion/Salmeterol 2 puff INHALATION RT-BID 09/30/23 09/30/23 Histo ry [Advair Hfa 115-21 Mcg Inhaler] Furosemide [Lasix] 40 mg PO DAILY 09/30/23 09/30/23 History Pantoprazole [Protonix] 40 mg PO DAILY 09/30/23 09/30/23 History Potassium Chloride ER [K-Dur 20] 20 meq PO DAILY 09/30/23 09/30/23 History buPROPion XL [Wellbutrin XL] 300 mg PO DAILY 09/30/23 09/30/23 History Allergies Allergy/AdvReac Type Severity Reaction Status Date / Time Penicillins Allergy Rash/Hives Verified 09/30/23 20:05 Physical Exam Vitals: Vital Signs Temp Pulse Resp BP Pulse Ox 10/01/23 20:30 95 16 119/75 96 10/01/23 19:37 80 10/01/23 19:28 78 10/01/23 17:00 94 20 119/70 97 10/01/23 15:35 87 20 98/59 93 L 10/01/23 14:08 97.8 F 83 18 98 10/01/23 13:00 89 22 128/73 97 10/01/23 09:25 100 10/01/23 08:50 99.8 F H 10/01/23 07:25 99.3 F 95 18 141/87 100 10/01/23 06:18 98.3 F 98 18 107/74 95 10/01/23 02:07 88 18 139/100 96 09/30/23 22:05 98.8 F 98 18 116/79 97 - Constitutional General appearance: cooperative, no acute distress - EENT Eyes: EOMI - Neck Neck: no lymphadenopathy - Respiratory Respiratory: bilateral: diminished - Cardiovascular Heart sounds: normal: S1, S2 Abnormal Heart Sounds: no systolic murmur - Gastrointestinal General gastrointestinal: no organomegaly, soft, no tenderness - Integumentary Integumentary: no cellulitis - Musculoskeletal Musculoskeletal: generalized weakness - Psychiatric Psychiatric: A&O x's 3 Results CBC & Chem 7: 09/30/23 19:18 09/30/23 19:18 Assessment and Plan (1) Altered mental status Current Visit: Yes Status: Acute Code(s): R41.82 - ALTERED MENTAL STATUS, UNSPECIFIED SNOMED Code(s): 201713284 (2) Paraesophageal hernia Current Visit: Yes Status: Acute Code(s): K44.9 - DIAPHRAGMATIC HERNIA WITHOUT OBSTRUCTION OR GANGRENE SNOMED Code(s): 1032019 (3) Hyperlipidemia Current Visit: Yes Status: Acute Code(s): E78.5 - HYPERLIPIDEMIA, UNSPECIFIED SNOMED Code(s): 45733665 (4) Pneumonia Current Visit: Yes Status: Acute Code(s): J18.9 - PNEUMONIA, UNSPECIFIED ORGANISM SNOMED Code(s): 451990728 Plan: Empiric antibody treatment. I will ask neurology to evaluate the patient due to altered mental status, although I do suspect this is related to the pneumonia. Reconcile home medications. Check CBC and see me in a.m. The patient seems lucid but weak this morning. Prognosis is guarded
--- NOTE | 2023-10-02 09:00 | P.PN ---
Subjective Progress Note Date: 10/02/23 Principal diagnosis: Confusion This is a 62-year-old female who was brought in to the emergency department after she was found disoriented and confused. Chest x-ray on admission showed possible pneumonia. Ultrasound of the carotids showed 50 to 69% stenosis of the left carotid bifurcation and less than 50% stenosis of the right carotid bifurcation. Patient is seen this morning lying in bed. She is alert and oriented. She reports she is very tired. She remains on azithromycin. Neurology has been consulted. Objective - Vital Signs Vital signs: Vital Signs Temp 98.3 F 10/02/23 07:15 Pulse 102 H 10/02/23 07:15 Resp 18 10/02/23 07:15 BP 151/90 10/02/23 07:15 Pulse Ox 94 L 10/02/23 07:15 FiO2 Intake & Output 10/01/23 10/02/23 10/02/23 18:59 06:59 18:59 Intake Total 1170 Balance 1170 Weight 104.598 kg Intake: Intake, IV Titration 1170 Amount Sodium Chloride 0.9% 1, 1170 000 ml @ 130 mls/hr IV . Q7H42M [facility] Rx#:[id number] Other: Voiding Method Toilet - Constitutional General appearance: Present: cooperative, no acute distress - EENT Eyes: Present: PERRLA - Neck Neck: Present: normal ROM. Absent: lymphadenopathy, rigidity - Respiratory Respiratory: bilateral: diminished - Cardiovascular Rhythm: regular Heart sounds: normal: S1, S2 - Gastrointestinal General gastrointestinal: Present: soft. Absent: tenderness - Integumentary Integumentary: Present: normal, normal turgor - Musculoskeletal Musculoskeletal: Present: generalized weakness - Psychiatric Psychiatric: Present: A&O x's 3 - Labs CBC & Chem 7: 09/30/23 19:18 09/30/23 19:18 Labs: Microbiology - Last 24 Hours (Table) 09/30/23 19:50 Blood Culture - Preliminary Blood 09/30/23 19:35 Blood Culture - Preliminary Blood Assessment and Plan (1) Altered mental status Current Visit: Yes Status: Acute Code(s): R41.82 - ALTERED MENTAL STATUS, UNSPECIFIED SNOMED Code(s): 395929165 (2) Hyperlipidemia Current Visit: Yes Status: Acute Code(s): E78.5 - HYPERLIPIDEMIA, UNSPECIFIED SNOMED Code(s): 91454874 (3) Paraesophageal hernia Current Visit: Yes Status: Acute Code(s): K44.9 - DIAPHRAGMATIC HERNIA WITHOUT OBSTRUCTION OR GANGRENE SNOMED Code(s): 3764541 (4) Pneumonia Current Visit: Yes Status: Acute Code(s): J18.9 - PNEUMONIA, UNSPECIFIED ORGANISM SNOMED Code(s): 951270009 Plan: Continue antibiotics. Appreciate neurology input. Check CBC and CMP in the morning. Patient seen and evaluated by nurse practitioner, physician in agreement with plan
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
[2023-10-02] MEDS: ASPIRIN 81 MG PO SCH (16:50)
[2023-10-02] MEDS: ATORVASTATIN 80 MG TAB PO SCH (20:29)
[2023-10-02] MEDS: MONTELUKAST 10 MG TAB PO SCH (20:30)
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
--- NOTE | 2023-10-03 08:20 | P.PN ---
Subjective Progress Note Date: 10/03/23 Principal diagnosis: Pneumonia. The patient is a 62-year-old white male with known history of hypertension who came in with altered mental status with amnesia and acute delirium. Neurology evaluated the patient she is cleared we do suspect this is related to her high fever and pneumonia. The patient is stabilizing but still fatigued. Objective - Vital Signs Vital signs: Vital Signs Temp 97.8 F 10/03/23 07:11 Pulse 82 10/03/23 07:11 Resp 17 10/03/23 07:11 BP 116/82 10/03/23 07:11 Pulse Ox 96 10/03/23 07:11 FiO2 Intake & Output 10/02/23 10/03/23 10/03/23 18:59 06:59 18:59 Other: Voiding Method Toilet Toilet # Voids 1 1 - Constitutional General appearance: Present: average body habitus, cooperative, no acute distress, obese - EENT Eyes: Absent: abnormal pupil - Respiratory Respiratory: bilateral: diminished - Cardiovascular Rhythm: regular Heart sounds: normal: S1, S2 Abnormal Heart Sounds: Absent: S3 Gallop - Gastrointestinal General gastrointestinal: Present: soft. Absent: tenderness - Musculoskeletal Musculoskeletal: Present: generalized weakness - Labs CBC & Chem 7: 09/30/23 19:18 09/30/23 19:18 Labs: Microbiology - Last 24 Hours (Table) 09/30/23 19:50 Blood Culture - Preliminary Blood 09/30/23 19:35 Blood Culture - Preliminary Blood Assessment and Plan (1) Altered mental status Current Visit: Yes Status: Acute Code(s): R41.82 - ALTERED MENTAL STATUS, UNSPECIFIED SNOMED Code(s): 561121703 (2) Paraesophageal hernia Current Visit: Yes Status: Acute Code(s): K44.9 - DIAPHRAGMATIC HERNIA WITHOUT OBSTRUCTION OR GANGRENE SNOMED Code(s): 1834683 (3) Hyperlipidemia Current Visit: Yes Status: Acute Code(s): E78.5 - HYPERLIPIDEMIA, UNSPECIFIED SNOMED Code(s): 06136196 (4) Pneumonia Current Visit: Yes Status: Acute Code(s): J18.9 - PNEUMONIA, UNSPECIFIED ORGANISM SNOMED Code(s): 514577433 Plan: Continue empiric antibiotic treatment. Appreciate neurology input. Check CBC and CMP [facility] will be covering for the weekend. I do suspect Antis and anticipate discharge in a.m.
[2023-10-03 09:14] LABS: HCT 39.1 % (34.0-46.0); HGB 12.3 gm/dL (11.4-16.0); MCH 29.1 pg (25.0-35.0); MCHC 31.6 g/dL (31.0-37.0); MCV 92.2 fL (80.0-100.0); Platelet Count 174 k/uL (150-450); RBC 4.24 m/uL (3.80-5.40); RDW 13.6 % (11.5-15.5); WBC 4.6 k/uL (3.8-10.6)
[2023-10-03] MEDS: AZITHROMYCIN 500 MG in SODIUM CHLORIDE 0.9% 250 ML IVPB SCH (09:29)
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
[2023-10-03 11:56] LABS: ALT 25 U/L (4-34); AST 32 U/L (14-36); African American GFR (CKD) >90 (>60 ml/min/1.73 sqM); Albumin 3.2 g/dL (3.5-5.0); Albumin/Globulin Ratio 1.2; Alkaline Phosphatase 92 U/L (38-126); Anion Gap 7 mmol/L; Blood Urea Nitrogen 8 mg/dL (7-17); Calcium 8.9 mg/dL (8.4-10.2); Carbon Dioxide 31 mmol/L (22-30); Chloride 104 mmol/L (98-107); Globulin 2.6 g/dL; Glucose 130 mg/dL (74-99); Non-African American GFR(CKD) >90 (>60 ml/min/1.73 sqM); Sodium 142 mmol/L (137-145); Total Bilirubin 0.4 mg/dL (0.2-1.3); Total Protein 5.8 g/dL (6.3-8.2)
[2023-10-03] MEDS: DOCUSATE 100 MG CAP PO SCH (12:09)
[2023-10-03 17:56] LABS: Chol/HDL Ratio 3.57 Ratio; LDL Cholesterol,Calculated 70.5 mg/dL (0.0-131.0)
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
[2023-10-04 09:44] LABS: HCT 38.1 % (37.2-46.3); HGB 12.3 g/dL (12.0-15.0); MCH 29.8 pg (27.0-32.0); MCHC 32.3 g/dL (32.0-37.0); MCV 92.3 FL (80.0-97.0); Mean Platelet Volume 10.5 FL (9.5-12.2); NRBC Per 100 WBC 0 X 10*3/uL (0.00-0.01); Platelet Count 195 X 10*3/uL (140-440); RBC 4.13 X 10*6/uL (4.10-5.20); RDW 13.4 % (11.5-14.5); WBC 5.03 X 10*3/uL (4.50-10.00)
[2023-10-04 11:44] LABS: ALT 25 U/L (8-44); AST 27 U/L (13-35); Albumin 3.6 g/dL (3.8-4.9); Albumin/Globulin Ratio 1.64 Ratio (1.60-3.17); Alkaline Phosphatase 90 U/L (41-126); BUN/Creat Ratio 10.57 Ratio (12.00-20.00); Blood Urea Nitrogen 7.4 mg/dL (9.0-27.0); Calcium 9.1 mg/dL (8.7-10.3); Carbon Dioxide 33.4 mmol/L (21.6-31.8); Chloride 103 mmol/L (96-109); Globulin 2.2 g/dL (1.6-3.3); Glucose 94 mg/dL (70-110); Potassium 3.4 mmol/L (3.5-5.5); Sodium 146 mmol/L (135-145); Total Bilirubin 0.2 mg/dL (0.3-1.2); Total Protein 5.8 g/dL (6.2-8.2)
--- NOTE | 2023-10-04 14:12 | PN ---
PROGRESS NOTE DATE OF SERVICE: 10/04/2023 SUBJECTIVE: This 62-year-old woman, who was admitted with hypertension was admitted with change in mental status, paraesophageal hernia and pneumonia. No chest pain, no palpitations, no fever. OBJECTIVE: VITAL SIGNS: Pulse 79, blood pressure 150/96, respirations 17. CHEST: A few scattered rhonchi. ABDOMEN: Soft. NERVOUS SYSTEM: Nonfocal. LABORATORY DATA: Potassium 3.4. ASSESSMENT: 1. Change in mental status. 2. Paraesophageal hernia. 3. Hyperlipidemia. 4. History of pneumonia. 5. Multiple complex medical issues. RECOMMENDATIONS: Recommended to continue current management, continue symptomatic treatment. Continue with the antibiotics, bronchodilators. Closely follow with Neurology, repeat labs. We will cut down the IV fluids and repeat labs and supplement potassium. Further recommendations to follow. MMODL / IJN: [id number] /
[2023-10-05 05:13] LABS: Basophils % (A) 1 %; Eosinophils # (A) 0.3 k/uL (0-0.7); Eosinophils % (A) 6 %; HCT 36.8 % (34.0-46.0); Lymphocytes # (A) 1.7 k/uL (1.0-4.8); Lymphocytes % (A) 33 %; MCH 30.1 pg (25.0-35.0); MCHC 32.7 g/dL (31.0-37.0); Mean Platelet Volume 7.7; Monocytes # (A) 0.3 k/uL (0-1.0); Monocytes % (A) 6 %; Neutrophils # (A) 2.6 k/uL (1.3-7.7); Neutrophils % (A) 51 %; Platelet Count 193 k/uL (150-450); WBC 5.1 k/uL (3.8-10.6)
[2023-10-05 05:16] LABS: African American GFR (CKD) >90 (>60 ml/min/1.73 sqM); Anion Gap 4 mmol/L; Blood Urea Nitrogen 10 mg/dL (7-17); Calcium 8.7 mg/dL (8.4-10.2); Carbon Dioxide 36 mmol/L (22-30); Chloride 101 mmol/L (98-107); Glucose 96 mg/dL (74-99); Non-African American GFR(CKD) 85 (>60 ml/min/1.73 sqM); Sodium 141 mmol/L (137-145)
[2023-10-05] MEDS ORDERED: Potassium Replacement Protocol 1 EACH MISC MISCELLANE PRN (05:49)
[2023-10-05] MEDS: POTASSIUM CHLORIDE ER 20 MEQ TAB.ER PO SCH (08:01)
[2023-10-05] MEDS ORDERED: Magnesium Replacement Protocol 1 EACH MISC MISCELLANE PRN (13:01)
--- NOTE | 2023-10-05 13:54 | PN ---
PROGRESS NOTE DATE OF SERVICE: 10/05/2023 I am covering for Dr. Escobar. SUBJECTIVE: This 62-year-old woman was admitted with change in mental status, hypertension, possible pneumonia, is improving significantly. No chest pain, no palpitation. OBJECTIVE: VITAL SIGNS: Pulse is 78, blood pressure 130/90, respirations 16. CHEST: Few scattered rhonchi. ABDOMEN: Soft. NERVOUS SYSTEM: No focal deficits. LABORATORY DATA: Potassium 3. ASSESSMENT: 1. Change in mental status. 2. Paraesophageal hernia. 3. Pneumonia. 4. Hyperlipidemia. 5. Hypokalemia. 6. Multiple complex medical issues. RECOMMENDATIONS: Recommended to continue current management, continue symptomatic treatment. We will supplement potassium, otherwise closely follow with Dr. Escobar, who will follow the patient tomorrow. Possibly discharge in the next 24 hours. MMODL / IJN: [id number] /
[2023-10-05 18:22] LABS: African American GFR (CKD) >90 (>60 ml/min/1.73 sqM); Anion Gap 3 mmol/L; Blood Urea Nitrogen 9 mg/dL (7-17); Calcium 9.3 mg/dL (8.4-10.2); Carbon Dioxide 39 mmol/L (22-30); Chloride 99 mmol/L (98-107); Glucose 110 mg/dL (74-99); Non-African American GFR(CKD) >90 (>60 ml/min/1.73 sqM); Potassium 3.8 mmol/L (3.5-5.1); Sodium 141 mmol/L (137-145)
[2023-10-05 23:40] VITALS: TEMP 98.1
[2023-10-06 05:30] VITALS: RESP 13
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
[2023-10-06 08:43] LABS: HCT 39.5 % (37.2-46.3); HGB 12.4 g/dL (12.0-15.0); MCHC 31.4 g/dL (32.0-37.0); MCV 92.5 FL (80.0-97.0); Mean Platelet Volume 10.3 FL (9.5-12.2); NRBC Per 100 WBC 0 X 10*3/uL (0.00-0.01); Platelet Count 244 X 10*3/uL (140-440); RBC 4.27 X 10*6/uL (4.10-5.20); RDW 13.3 % (11.5-14.5); WBC 7.48 X 10*3/uL (4.50-10.00)
--- NOTE | 2023-10-06 08:57 | P.DS ---
Providers Date of admission: 09/30/23 21:12 Attending physician: Doc Escobar Consults: 10/01/23 08:14 Consult Physician Routine Consulting Provider: Clifton Barreto Consult Reason/Comments: disorientation/altered mentation Do you want consulting provider notified?: Yes Primary care physician: Doc Escobar - Discharge Diagnosis(es) (1) Altered mental status Current Visit: Yes Status: Acute (2) Hyperlipidemia Current Visit: Yes Status: Acute (3) Paraesophageal hernia Current Visit: Yes Status: Acute (4) Pneumonia Current Visit: Yes Status: Acute Hospital Course: This is a 62-year-old female who was brought in to the emergency department after she was found disoriented and confused. Chest x-ray on admission showed possible pneumonia. Ultrasound of the carotids showed 50 to 69% stenosis of the left carotid bifurcation and less than 50% stenosis of the right carotid bifurcation. Neurology workup has been normal and they have cleared patient for discharge. Lung sounds are much improved. Patient reports she is feeling much better and is ready to go home. She will be discharged home on a short course of Ceftin to complete treatment of pneumonia. Patient seen and evaluated by nurse practitioner, physician in agreement with plan Patient Condition at Discharge: Fair Plan - Discharge Summary New Discharge Prescriptions: New cefUROXime axetiL [Ceftin] 500 mg PO BID 5 Days #10 tab Continue DULoxetine HCL [Cymbalta] 120 mg PO DAILY Montelukast Sodium [Singulair] 10 mg PO DAILY Loratadine [Claritin] 10 mg PO DAILY Verapamil HCl [Verapamil ER] 120 mg PO DAILY Albuterol Inhaler [Ventolin Hfa Inhaler] 1 puff INHALATION RT-Q6H PRN PRN Reason: Shortness Of Breath Levothyroxine Sodium 100 mcg PO DAILY Pantoprazole [Protonix] 40 mg PO DAILY Atorvastatin Calcium [Lipitor] 80 mg PO DAILY Potassium Chloride ER [K-Dur 20] 20 meq PO DAILY Furosemide [Lasix] 40 mg PO DAILY buPROPion XL [Wellbutrin XL] 300 mg PO DAILY Fluticasone Propion/Salmeterol [Advair Hfa 115-21 Mcg Inhaler] 2 puff INHALATION RT-BID Discharge Medication List DULoxetine HCL [Cymbalta] 120 mg PO DAILY 06/30/15 [History] Loratadine [Claritin] 10 mg PO DAILY 06/30/15 [History] Montelukast Sodium [Singulair] 10 mg PO DAILY 06/30/15 [History] Verapamil HCl [Verapamil ER] 120 mg PO DAILY 06/30/15 [History] Albuterol Inhaler [Ventolin Hfa Inhaler] 1 puff INHALATION RT-Q6H PRN 07/14/19 [History] Levothyroxine Sodium 100 mcg PO DAILY 07/14/19 [History] Atorvastatin Calcium [Lipitor] 80 mg PO DAILY 09/30/23 [History] Fluticasone Propion/Salmeterol [Advair Hfa 115-21 Mcg Inhaler] 2 puff INHALATION RT-BID 09/30/23 [History] Furosemide [Lasix] 40 mg PO DAILY 09/30/23 [History] Pantoprazole [Protonix] 40 mg PO DAILY 09/30/23 [History] Potassium Chloride ER [K-Dur 20] 20 meq PO DAILY 09/30/23 [History] buPROPion XL [Wellbutrin XL] 300 mg PO DAILY 09/30/23 [History] cefUROXime axetiL [Ceftin] 500 mg PO BID 5 Days #10 tab 10/06/23 [Rx] Follow up Appointment(s)/Referral(s): Doc Escobar MD [Primary Care Provider] - 1 Week Discharge Disposition: HOME SELF-CARE
[2023-10-06 08:58] LABS: ALT 26 U/L (8-44); AST 27 U/L (13-35); Albumin 3.7 g/dL (3.8-4.9); Albumin/Globulin Ratio 1.61 Ratio (1.60-3.17); Alkaline Phosphatase 100 U/L (41-126); BUN/Creat Ratio 9.86 Ratio (12.00-20.00); Blood Urea Nitrogen 6.9 mg/dL (9.0-27.0); Calcium 9.6 mg/dL (8.7-10.3); Carbon Dioxide 33.2 mmol/L (21.6-31.8); Chloride 101 mmol/L (96-109); Globulin 2.3 g/dL (1.6-3.3); Glucose 95 mg/dL (70-110); Potassium 3.9 mmol/L (3.5-5.5); Sodium 146 mmol/L (135-145); Total Bilirubin 0.3 mg/dL (0.3-1.2)
[2023-10-06 09:07] VITALS: BP 144/95; PULSE 96
[2023-10-06 09:37] LABS: Basophils # (A) 0.02 X 10*3/uL (0.00-0.10); Basophils % (A) 0.3 %; Eosinophils # (A) 0.36 X 10*3/uL (0.04-0.35); Eosinophils % (A) 4.8 %; Lymphocytes # (A) 2.49 X 10*3/uL (0.90-5.00); Lymphocytes % (A) 33.3 %; Monocytes # (A) 0.42 X 10*3/uL (0.20-1.00); Monocytes % (A) 5.6 %; Neutrophils # (A) 4.17 X 10*3/uL (1.80-7.70); Neutrophils % (A) 55.7 %; RBC Morphology Normal (Normal)
== END 2023-10-06 14:03 | disposition home or self-care (01) | DRG 193 ==
LOC: EC 18:41 → 6NMEDSUR 21:11 → OBSVTOIN 21:12 → 6NMEDSUR 10-01 00:09 → 4SSUR 10-01 16:08
PROVIDERS: ADMIT Family Medicine; ATTEND Family Medicine
DX: J18.9 Pneumonia, unspecified organism (principal); G93.41 Metabolic encephalopathy; E87.1 Hypo-osmolality and hyponatremia; E78.5 Hyperlipidemia, unspecified; Z20.822 Contact with and (suspected) exposure to COVID-19; N39.3 Stress incontinence (female) (male); E87.6 Hypokalemia; F32.A Depression, unspecified; F41.9 Anxiety disorder, unspecified; J45.909 Unspecified asthma, uncomplicated; I10 Essential (primary) hypertension; E07.9 Disorder of thyroid, unspecified; I65.23 Occlusion and stenosis of bilateral carotid arteries; M41.9 Scoliosis, unspecified; Z98.1 Arthrodesis status; G43.909 Migraine, unspecified, not intractable, without status migrainosus; K44.9 Diaphragmatic hernia without obstruction or gangrene; Z87.01 Personal history of pneumonia (recurrent); Z79.84 Long term (current) use of oral hypoglycemic drugs; Z87.11 Personal history of peptic ulcer disease; Z79.890 Hormone replacement therapy; Z79.899 Other long term (current) drug therapy; Z87.19 Personal history of other diseases of the digestive system
CPT/HCPCS: 36415; 70450; 71046; 80048; 80053; 80061; 81003; 83036; 83605; 83735; 85025; 85027; 85610; 85730; 87040; 87636; 93005; 93880; 94640; 94760; 95816; 96361; 96365; 99285

== ENCOUNTER 2023-11-13 07:30 | Inpatient (IN) | payer MEDICARE ==
[2023-12-04 09:18] VITALS: BMI 40.8
[2023-12-08] MEDS ORDERED: LIDOCAINE 1% (10MG/ML) FOR IV START INTRADERMA PRN (06:00)
[2023-12-08] MEDS ORDERED: droPERidol 5 MG/2 ML VIAL IVP PRN (06:00)
[2023-12-08] MEDS: IV FLUID CONTINUATION 1,000 ML IV ONE ×4 (07:07→07:19)
[2023-12-08] MEDS: LACTATED RINGERS 1,000 ML IV SCH (07:07)
[2023-12-08 07:11] LABS: Glucose,Whole Blood 98 mg/dL (70-110)
[2023-12-08] MEDS: SCOPOLAMINE 1 MG/72 HR PATCH TRANSDERM ONE (07:21)
[2023-12-08] MEDS: ONDANSETRON 4 MG/2 ML VIAL IVP ONE (07:21)
[2023-12-08] MEDS: DEXAMETHASONE SOD PHOSPHATE 4 MG/ML 1 ML VIAL IV ONE (07:21)
[2023-12-08] MEDS ORDERED: ALBUMIN HUMAN 5% (25gm) 500 ML VIAL IVPB ONE (07:30)
[2023-12-08] MEDS ORDERED: GLYCOPYRROLATE 0.2 MG/ML 2 ML VIAL ONE (07:30)
[2023-12-08] MEDS ORDERED: HYDROmorphone (PF) 1 MG/ML ONE (07:30)
[2023-12-08] MEDS ORDERED: MIDAZOLAM 2 MG/2 ML VIAL ONE (07:30)
[2023-12-08] MEDS ORDERED: PROPOFOL 10 MG/ML 20 ML VIAL IV ONE (07:30)
[2023-12-08] MEDS ORDERED: ROCURONIUM 10 MG/ML (5 ML VIAL) IV ONE (07:30)
[2023-12-08] MEDS ORDERED: PHENYLEPHRINE 10 MG/ML VIAL ONE (07:30)
[2023-12-08] MEDS ORDERED: fentaNYL (PF) 50 MCG/ML 2 ML AMP ONE (07:30)
[2023-12-08] MEDS ORDERED: NEOSTIGMINE 1 MG/ML 10 ML VIAL ONE (07:30)
[2023-12-08] MEDS ORDERED: LIDOCAINE 1% INJ 10MG/ML (20 ML MDV) ONE (07:30)
[2023-12-08] MEDS ORDERED: SUCCINYLCHOLINE CHLORIDE 200 MG/10 ML VIAL IV ONE (07:30)
[2023-12-08] MEDS ORDERED: FUROSEMIDE 10 MG/ML 2 ML VIAL ONE (07:30)
[2023-12-08] MEDS: LIDOCAINE 2%-EPI 1:100,000 20 ML VIAL SQ ONE ×2 (08:05→12:09)
[2023-12-08] MEDS: LACTATED RINGERS 1,000 ML IV ONE ×2 (10:21→11:08)
[2023-12-08] MEDS: SODIUM CHLORIDE 0.9% 50 ML with ceFAZolin 2,000 MG IV ONE (11:55)
--- NOTE | 2023-12-08 12:35 | P.OP ---
Date of Procedure: 12/08/23 Preoperative Diagnosis: Giant Paraesophageal Hernia GERD Esophagitis Hx of GI Bleed and Gastritis HLD Morbid Obesity OA Postoperative Diagnosis: Same Procedure(s) Performed: 1. Esophagogastroduodenoscopy 2. Robotic assisted laparoscopic giant paraesophageal hernia repair with Phasix Mesh 2. Garcia Fundoplication Anesthesia: AARON Surgeon: Mitch Gardner Estimated Blood Loss (ml): 50 Urine output (ml): 300 Pathology: none sent Condition: stable Disposition: PACU Indications for Procedure: This is a 63 year-old F who self referred herself with symptoms of early satiety, fullness and chest pressure with PO intake. She was found to have a giant paraesophageal hernia and also has had a hx of GI bleed with gastritis and esophagitis. Given her symptoms, robotic paraesophageal hernia repair was offered. Operative Findings: Giant Type III para-esophageal hernia. EGD revealed normal distal esophagus and stomach. No evidence of inflammation. Description of Procedure: The patient was brought back to the operating room and placed in the supine position. General anesthesia was induced and she was intubated with a single lumen tube. Footboard and pretty catheter were placed. Her abdomen was prepped and draped in the usual sterile fashion. Time-out was performed and antibiotics were given. EGD was performed which revealed a large type III para-esophageal hernia without evidence of esophagitis, gastritis or lesions. The patient was positioned in deep reverse trendelenberg position. 11 blade was used to make a small incision in the left upper quadrant. Veress needle was inerted and the abdomen was insufflated to 15mm hg. 5mm optiview camera was used to gain entry in the supra-umbilical region after making an 8mm incision. Three additional 8mm ports were placed in the bilateral para-median sp aces and the left upper quadrant. A 12mm assist port was placed in the left lower quadrant. Blanco suarez liver retractor was placed via an incision in the sub-xiphoid region. The Da Edwina Xi robot was docked and the falciform ligament was taken down with the vessel sealer. Next the pars flaccida was taken down using the vessel sealer towards the right christine of the diaphragm. The hernia sac was then circumferentially dissected in this area. Next, the short gastrics were divided using the vessel sealer towards the left christine of the diaphragm. The type III hernia was completely reduced. Shalonda was then placed around the distal esophagus, proximal stomach and retracted down. This allowed further dissection of the hernia sac. With plenty of esophagus in the abdominal cavity, 2-0 stratifix (v-lock suture) was used to close the inferior christine x 2. Single #1 inerrupted ethibond was placed in the superior christine to close this part. This allowed for a nice closure. At this point, 8x8cm phasix ST mesh was fashioned to mimic a keyhole and fastened around the hiatus using multiple 2-0 vicryl sutures. At this point, given her history of obesity, the decision was made to perform a garcia funduoplication. The fundus of the stomach was then tacked up above the liver to the peritoneum using multiple 2-0 silk sutures. At this point, 12F flat MELANIE was placed under the liver near the christine. All incisions were closed in layers and the patient was extubated.
--- NOTE | 2023-12-08 13:28 | XR ---
EXAMINATION TYPE: XR chest 1V portable DATE OF EXAM: 12/08/2023 Comparison: 09/30/2023 Clinical History: 63-year-old female post esophageal hernia repair Findings: Bilateral subcutaneous emphysema probably relating to the patient's recent surgery. Suspect underlyin g pneumomediastinum. No obvious pneumothorax seen. Some interstitial change persists and patchy left basilar opacity. NG tube is present. There appears to be upturning at the expected GE junction with t ip at the lower thorax. S-shaped scoliosis. Single Marcano patsy. Impression: 1. There appears to be an NG tube which demonstrates a U-turn at the expected GE junction, tip projec ting upward at the lower thorax. 2. Suspect some underlying pneumomediastinum. There is subcutaneous emphysema also present. 3. Correlate for mild pulmonary vascular congestion. Patchy or consolidation at the left base.
[2023-12-08] MEDS ORDERED: bisacodyL 10 MG SUPP RECTAL PRN (13:55)
[2023-12-08] MEDS ORDERED: METOCLOPRAMIDE 5 MG/ML 2 ML VIAL IVP PRN (13:55)
[2023-12-08] MEDS ORDERED: ONDANSETRON 4 MG/2 ML VIAL IVP PRN (13:55)
[2023-12-08] MEDS: HYDROmorphone 0.5 MG/0.5 ML SYRINGE IVP PRN ×2 (13:58→16:21)
[2023-12-08 15:53] LABS: Glucose,Whole Blood 141 mg/dL (70-110)
[2023-12-08] MEDS: HEPARIN SODIUM,PORCINE 5,000 UNIT/ML 1 ML VIAL SQ SCH (18:22)
[2023-12-08] MEDS: ACETAMINOPHEN IV (For NPO) 1,000 MG in EMPTY BAG 1 BAG IVPB SCH (18:22)
[2023-12-08] MEDS: D5-0.45% NACL WITH KCL 20MEQ/L 1,000 ML IV SCH (18:28)
[2023-12-08 19:30] LABS: Basophils % (A) 0 %; Eosinophils % (A) 0 %; HCT 37.8 % (34.0-46.0); HGB 11.7 gm/dL (11.4-16.0); Lymphocytes # (A) 0.6 k/uL (1.0-4.8); Lymphocytes % (A) 6 %; MCH 29.4 pg (25.0-35.0); MCV 94.7 fL (80.0-100.0); Mean Platelet Volume 8.1; Monocytes # (A) 0.5 k/uL (0-1.0); Monocytes % (A) 5 %; Neutrophils # (A) 8.4 k/uL (1.3-7.7); Neutrophils % (A) 87 %; Platelet Count 190 k/uL (150-450); RDW 12.9 % (11.5-15.5); WBC 9.7 k/uL (3.8-10.6)
[2023-12-08 19:31] LABS: African American GFR (CKD) >90 (>60 ml/min/1.73 sqM); Anion Gap 9 mmol/L; Blood Urea Nitrogen 13 mg/dL (7-17); Calcium 9.3 mg/dL (8.4-10.2); Carbon Dioxide 29 mmol/L (22-30); Chloride 103 mmol/L (98-107); Glucose 136 mg/dL (74-99); Non-African American GFR(CKD) 88 (>60 ml/min/1.73 sqM); Potassium 3.9 mmol/L (3.5-5.1); Sodium 141 mmol/L (137-145)
[2023-12-08] MEDS: MONTELUKAST 10 MG TAB PO SCH (19:49)
[2023-12-08] MEDS: ATORVASTATIN 80 MG TAB PO SCH (19:49)
[2023-12-08] MEDS: DOCUSATE 100 MG CAP PO SCH (19:49)
[2023-12-08] MEDS: SYMBICORT 160-4.5 MCG INHALER INHALATION SCH (21:15)
[2023-12-09] MEDS: LEVOTHYROXINE IVP 100 MCG/5 ML VIAL IV SCH (06:13)
[2023-12-09 07:47] LABS: Basophils % (A) 0 %; Eosinophils % (A) 0 %; HCT 38.1 % (34.0-46.0); HGB 11.9 gm/dL (11.4-16.0); Lymphocytes # (A) 0.8 k/uL (1.0-4.8); Lymphocytes % (A) 8 %; MCH 29.7 pg (25.0-35.0); MCHC 31.3 g/dL (31.0-37.0); MCV 94.9 fL (80.0-100.0); Mean Platelet Volume 8.2; Monocytes # (A) 0.6 k/uL (0-1.0); Monocytes % (A) 6 %; Neutrophils # (A) 8.5 k/uL (1.3-7.7); Neutrophils % (A) 85 %; Platelet Count 192 k/uL (150-450); RBC 4.02 m/uL (3.80-5.40)
[2023-12-09] MEDS: ALBUTEROL NEBULIZED 2.5 MG/3 ML INHALATION PRN (08:01)
[2023-12-09 08:11] LABS: African American GFR (CKD) >90 (>60 ml/min/1.73 sqM); Anion Gap 6 mmol/L; Blood Urea Nitrogen 13 mg/dL (7-17); Calcium 9.2 mg/dL (8.4-10.2); Carbon Dioxide 30 mmol/L (22-30); Chloride 104 mmol/L (98-107); Glucose 133 mg/dL (74-99); Non-African American GFR(CKD) 89 (>60 ml/min/1.73 sqM); Potassium 3.8 mmol/L (3.5-5.1); Sodium 140 mmol/L (137-145)
--- NOTE | 2023-12-09 08:39 | XR ---
EXAMINATION TYPE: XR chest 1V DATE OF EXAM: 12/09/2023 COMPARISON: 12/08/2023 HISTORY: 63-year-old female postesophageal hernia repair TECHNIQUE: Single frontal view of the chest is obtained. FINDINGS: Heart remains mildly enlarged. Interstitial density persists. Worsening aeration retrocard iac region and left base. Suspect small left greater than right pleural effusions. An NG tube is pres ent. It shows a hairpin turn at the GE junction with tip projecting upward at the mid to lower chest level. Single Marcano patsy. IMPRESSION: 1. The imaging to continues to show a hairpin turn at the GE junction with tip projecting upward at t he mid to lower chest level. 2. Overall worsening aeration and development of small effusions. Consider CHF with developing patchy pulmonary edema. Pneumonia can be excluded on a clinical basis.
--- NOTE | 2023-12-09 09:12 | P.CONS ---
History of Present Illness - Reason for Consult Consult date: 12/09/23 Medical management - History of Present Illness This is a 63-year-old female who was admitted for an EGD, robotic assisted l aparoscopic giant paraesophageal hernia repair, and garcia fundoplication with Dr. Gardner. She is seen this morning sitting up in bed, resting comfortably. Reports pain is well-controlled. Vital signs are stable. She reports she is passing gas. Further medical history as noted below. Review of Systems Constitutional: Denies chills, Denies fever Cardiovascular: Denies chest pain, Denies dyspnea on exertion Respiratory: Denies cough, Denies dyspnea Gastrointestinal: Denies abdominal pain, Denies nausea, Denies vomiting Musculoskeletal: Denies arm numbness/tingling, Denies leg numbness/tingling Neurological: Denies headaches, Denies weakness Past Medical History Past Medical History: Asthma, Cancer, GERD/Reflux, GI Bleed, Hyperlipidemia, Osteoarthritis (OA), Pneumonia, Thyroid Disorder Additional Past Medical History / Comment(s): Hx Pneumonia 09/2023. Hx of b leeding ulcer and esophogitis, anemia, hx of migraines, denies high blood pressure or diabetes, takes Ozempic for weight loss, hypothyroid, reports possible mini stroke ?1988, stress incontinence, hx melanoma 2001 on back. History of Any Multi-Drug Resistant Organisms: None Reported Past Surgical History: Back Surgery Additional Past Surgical History / Comment(s): Uterine polyp removed, LEEP with colposcopy, D&C, spinal fusion - states has dillard patsy in back, rectal prolapse surgery, cosmetic eye surgery, EGD, colonoscopy. Past Anesthesia/Blood Transfusion Reactions: No Reported Reaction, Motion Sickness Additional Past Anesthesia/Blood Transfusion Reaction / Comm: Had blood transfusion reports possible antibodies. Past Psychological History: Anxiety, Depression Smoking Status: Never smoker Past Alcohol Use History: None Reported Past Drug Use History: None Reported - Past Family History Brother(s) Family Medical History: Cancer Additional Family Medical History / Comment(s): Pancreatic cancer, AAA. Mother Family Medical History: Cancer Additional Family Medical History / Comment(s): Lung cancer. Sister(s) Family Medical History: Deep Vein Thrombosis (DVT) Additional Family Medical History / Comment(s): AAA. Father Additional Family Medical History / Comment(s): AAA. Medications and Allergies Home Medications Medication Instructions Recorded Confirmed Type DULoxetine HCL [Cymbalta] 120 mg PO DAILY 06/30/15 12/08/23 History Loratadine [Claritin] 10 mg PO DAILY 06/30/15 12/08/23 History Montelukast Sodium [Singulair] 10 mg PO HS 06/30/15 12/08/23 History Verapamil HCl [Verapamil ER] 120 mg PO DAILY 06/30/15 12/08/23 History Albuterol Inhaler [Ventolin Hfa 1 puff INHALATION RT-Q6H PRN 07/14/19 12/08/23 History Inhaler] Levothyroxine Sodium 100 mcg PO DAILY 07/14/19 12/08/23 History Atorvastatin Calcium [Lipitor] 80 mg PO HS 09/30/23 12/08/23 History Fluticasone Propion/Salmeterol 2 puff INHALATION RT-BID 09/30/23 12/08/23 History [Advair Hfa 115-21 Mcg Inhaler] Furosemide [Lasix] 40 mg PO DAILY 09/30/23 12/08/23 History Pantoprazole [Protonix] 40 mg PO DAILY 09/30/23 12/08/23 History Potassium Chloride ER [K-Dur 20] 20 meq PO DAILY 09/30/23 12/08/23 History buPROPion XL [Wellbutrin XL] 300 mg PO DAILY 09/30/23 12/08/23 History Aspirin 81 mg PO DAILY 11/12/23 12/08/23 History Docusate [Colace] 100 mg PO BID 11/12/23 12/08/23 History Fiber 1 tab PO DAILY 11/12/23 12/08/23 History Multivit/Iron Sulf/Folic Acid 1 each PO DAILY 11/12/23 12/08/23 History [Multivitamin with Iron] Vitamin B12 1 tab PO DAILY 11/12/23 12/08/23 History Vitamin D 1 tab PO DAILY 11/12/23 12/08/23 History Semaglutide [Ozempic] 0.5 mg SQ WE 12/04/23 12/08/23 History Allergies Allergy/AdvReac Type Severity Reaction Status Date / Time Penicillins Allergy Rash/Hives Verified 12/08/23 06:58 Physical Exam Vitals: Vital Signs Temp Pulse Pulse Pulse Resp BP BP 12/09/23 08:13 104 H 12/09/23 08:01 104 H 12/09/23 04:00 97.0 F L 113 H 16 137/89 12/09/23 00:00 97.4 F L 101 H 20 152/98 12/08/23 19:35 97.5 F L 71 14 150/71 12/08/23 18:30 100 16 144/93 12/08/23 18:00 97 16 143/88 12/08/23 17:45 98 16 146/89 12/08/23 17:30 97 16 135/87 12/08/23 17:15 100 16 119/85 12/08/23 16:44 93 16 134/80 12/08/23 16:15 93 16 137/86 12/08/23 15:45 98.6 F 89 16 136/81 12/08/23 15:03 90 14 136/82 12/08/23 14:33 88 14 128/80 12/08/23 14:18 88 14 133/81 12/08/23 14:03 87 14 133/78 12/08/23 13:48 85 14 124/73 12/08/23 13:33 84 14 140/80 12/08/23 13:18 84 14 137/74 12/08/23 13:03 85 14 132/79 12/08/23 12:52 86 16 139/74 12/08/23 12:37 87 16 123/71 12/08/23 12:22 87 16 118/59 Pulse Ox 12/09/23 08:13 12/09/23 08:01 93 L 12/09/23 04:00 97 12/09/23 00:00 96 12/08/23 19:35 93 L 12/08/23 18:30 94 L 12/08/23 18:00 94 L 12/08/23 17:45 94 L 12/08/23 17:30 94 L 12/08/23 17:15 94 L 12/08/23 16:44 95 12/08/23 16:15 94 L 12/08/23 15:45 95 12/08/23 15:03 92 L 12/08/23 14:33 95 12/08/23 14:18 94 L 12/08/23 14:03 93 L 12/08/23 13:48 93 L 12/08/23 13:33 95 12/08/23 13:18 94 L 12/08/23 13:03 95 12/08/23 12:52 95 12/08/23 12:37 12/08/23 12:22 Intake and Output 12/08/23 12/09/23 12/09/23 22:59 06:59 14:59 Output Total 675 360 Balance -675 -360 Output: Gastric Drainage 5 0 Drainage 20 10 Abdomen 20 10 Urine 650 350 Other: Voiding Method Indwelling Catheter Indwelling Catheter Weight 108.5 kg - Constitutional General appearance: cooperative, no acute distress - EENT Eyes: PERRLA - Neck Neck: no lymphadenopathy, normal ROM, no rigidity - Respiratory Respiratory: bilateral: CTA - Cardiovascular Rhythm: regular Heart sounds: normal: S1, S2 - Gastrointestinal General gastrointestinal: decreased bowel sounds, tenderness - Integumentary Integumentary: normal, normal turgor - Psychiatric Psychiatric: A&O x's 3 Results CBC & Chem 7: 12/09/23 07:00 12/09/23 07:00 Labs: Abnormal Lab Results - Last 24 Hours (Table) 12/08/23 12/08/23 12/08/23 Range/Units 15:51 19:01 19:01 Neutrophils # 8.4 H (1.3-7.7) k/uL Lymphocytes # 0.6 L (1.0-4.8) k/uL Glucose 136 H (74-99) mg/dL POC Glucose (mg/dL) 141 H (70-110) mg/dL 12/09/23 12/09/23 Range/Units 07:00 07:00 Neutrophils # 8.5 H (1.3-7.7) k/uL Lymphocytes # 0.8 L (1.0-4.8) k/uL Glucose 133 H (74-99) mg/dL POC Glucose (mg/dL) (70-110) mg/dL Assessment and Plan (1) Paraesophageal hernia Current Visit: No Status: Acute Code(s): K44.9 - DIAPHRAGMATIC HERNIA WITHOUT OBSTRUCTION OR GANGRENE SNOMED Code(s): 3067401 (2) Hyperlipidemia Current Visit: No Status: Acute Code(s): E78.5 - HYPERLIPIDEMIA, UNSPECIFIED SNOMED Code(s): 74596319 (3) Asthma Current Visit: Yes Status: Acute Code(s): J45.909 - UNSPECIFIED ASTHMA, UNCOMPLICATED SNOMED Code(s): 348953812 (4) GERD (gastroesophageal reflux disease) Current Visit: Yes Status: Acute Code(s): K21.9 - GASTRO-ESOPHAGEAL REFLUX DISEASE WITHOUT ESOPHAGITIS SNOMED Code(s): 317867816 (5) Hypothyroid Current Visit: Yes Status: Acute Code(s): E03.9 - HYPOTHYROIDISM, UNSPECIFIED SNOMED Code(s): 94082407 Plan: May continue home medications. Continue to follow postop instructions per surgeon, encourage use of incentive spirometer. Check CBC and CMP in the morning. Patient seen and evaluated by nurse practitioner, physician in agreement with plan
--- NOTE | 2023-12-09 09:47 | P.PN ---
Subjective Progress Note Date: 12/09/23 Principal diagnosis: Giant Paraesophageal Hernia, GERD, esophagitis. History of GI bleed and gastritis, hyperlipidemia, morbid obesity, osteoarthritis, asthma, hypothyroid, questionable TIA in 1998, never smoker POD #1 esophagogastroduodenoscopy, robotic assisted laparoscopic giant paraesophageal hernia repair with Phasix Mesh, Phillip Fundoplication The patient was seen and examined this morning sitting up in bed in no acute distress. She is quite sleepy especially given IV Dilaudid, but she does arouse and answers questions appropriately. She states pain is controlled on current medication regimen, denies shortness of breath. Currently in sinus rhythm to sinus tach, hemodynamically stable. Remains on 2 L nasal cannula, barely able to achieve 500 mL on her incentive spirometry. NG tube was present this morning to continuous wall suction with minimal output. MELANIE drain present, also with minimal output. Chest x-ray, labs reviewed. No other new concerns. Objective - Vital Signs Vital signs: Vital Signs Temp 97.0 F L 12/09/23 04:00 Pulse 104 H 12/09/23 08:13 Resp 16 12/09/23 04:00 BP 137/89 12/09/23 04:00 Pulse Ox 93 L 12/09/23 08:01 FiO2 Intake & Output 12/08/23 12/09/23 12/09/23 18:59 06:59 18:59 Intake Total 2700 Output Total 900 485 Balance 1800 -485 Weight 95.8 kg 108.5 kg Intake: IV 2700 Output: Gastric Drainage 5 Drainage 30 Abdomen 30 Urine 850 450 Estimated Blood Loss 50 Other: Voiding Method Indwelling Catheter - Exam CONSTITUTIONAL: Appears comfortable, cooperative, no acute distress RESPIRATORY: Lungs sounds diminished bilaterally. Respirations even, nonlabored. Currently on 2 L nasal cannula with oxygen saturation 97%. Able to achieve 500 mL on incentive spirometry. Strong cough. CARDIOVASCULAR: S1, S2 present. Regular rate and rhythm, sinus rhythm to sinus tach on telemetry. Palpable peripheral pulses bilaterally. No edema present. No calf pain or tenderness noted. SCDs present. GASTROINTESTINAL: Abdomen soft, nontender, nondistended, obese. Hypoactive bowel sounds present 4 quadrants. NG tube was present to low continuous suction, minimal output GENITOURINARY: Sethi present draining dark urine, output 1300 mL since surgery INTEGUMENTARY: Skin is warm and dry, MELANIE drain present with serosanguineous drainage NEUROLOGIC: Cranial nerves II through XII intact MUSKULOSKELETAL: Able to move all extremities, strength equal bilaterally PSYCHIATRIC: Sleepy but arousable, oriented to person place and time - Allied health notes Allied health notes reviewed: nursing - Labs CBC & Chem 7: 12/09/23 07:00 12/09/23 07:00 Labs: Abnormal Lab Results - Last 24 Hours (Table) 12/08/23 12/08/23 12/08/23 Range/Units 15:51 19:01 19:01 Neutrophils # 8.4 H (1.3-7.7) k/uL Lymphocytes # 0.6 L (1.0-4.8) k/uL Glucose 136 H (74-99) mg/dL POC Glucose (mg/dL) 141 H (70-110) mg/dL 12/09/23 12/09/23 Range/Units 07:00 07:00 Neutrophils # 8.5 H (1.3-7.7) k/uL Lymphocytes # 0.8 L (1.0-4.8) k/uL Glucose 133 H (74-99) mg/dL POC Glucose (mg/dL) (70-110) mg/dL - Imaging and Cardiology Chest x-ray: report reviewed, image reviewed Assessment and Plan Assessment: Giant Paraesophageal Hernia, status post EGD, robotic assisted laparoscopic giant paraesophageal hernia repair with Phasix Mesh, Phillip Fundoplication GERD Esophagitis History of GI bleed and gastritis Hyperlipidemia Morbid obesity Osteoarthritis Asthma Hypothyroid Questionable TIA in 1998 Never smoker Plan: NG tube discontinued Will send patient for upper GI with oral Gastrografin, if no leak will start clear liquids Will discontinue IV fluids, discontinue Sethi catheter Increase activity, ambulate as tolerated Wean oxygen as tolerated, encourage incentive spirometry use 10 times every hour while awake Continue home medications Pain control with current medication regimen. IV narcotics discontinued due to patient's sleepiness Likely will discharge to home in the next 24 to 48 hours on soft diet if patient tolerates More recommendations to follow
--- NOTE | 2023-12-09 12:19 | FL ---
SINGLE CONTRAST UPPER GI EXAMINATION: CLINICAL HISTORY: 63-year-old female status post paraesophageal hiatal hernia repair, evaluate for l eak TECHNIQUE: Single contrast exam performed with 50 ml Isovue-370 contrast. fluoro time 1min 26sec DAP 601.57 mGycm2 Total images 18 FINDINGS: The patient swallowed oral contrast without difficulty or delay. Esophageal peristalsis and motility are within normal limits. There is prompt passage of contrast from the esophagus into the stomach. No residual hiatal hernia is identified. The stomach shows an indentation along the left lateral wall of the fundus possibly as a result of long-standing paraesophageal hernia. The stomach appears locat ed in the left side of the abdomen. There is no evidence of contrast extravasation to suggest leak. L eft basilar opacity probably underlying effusion. No postoperative free air is seen. IMPRESSION: No evidence of leak or significant obstruction status post hiatal hernia repair. Stomach located with in the left upper quadrant. Suspect an underlying left pleural effusion with adjacent atelectasis and /or consolidation.
[2023-12-09] MEDS: CYANOCOBALAMIN 500 MCG TAB PO SCH (13:44)
[2023-12-09] MEDS: buPROPion XL 300 MG TAB.ER.24H PO SCH (13:44)
[2023-12-09] MEDS: DULoxetine HCL 60 MG CAPSULE.DR PO SCH (13:44)
[2023-12-09] MEDS: FUROSEMIDE 40 MG TAB PO SCH (13:44)
[2023-12-09] MEDS: CHOLECALCIFEROL 125 MCG (5000 IU) TABLET PO SCH (13:44)
[2023-12-09] MEDS: POTASSIUM CHLORIDE ER 20 MEQ TAB.ER PO SCH (13:44)
[2023-12-09] MEDS: ASPIRIN 81 MG PO SCH (13:44)
[2023-12-09] MEDS: VERAPAMIL SR 120 MG TABLET.ER PO SCH (13:44)
[2023-12-09] MEDS: LORATADINE 10 MG TAB PO SCH (13:44)
[2023-12-09] MEDS: PANTOPRAZOLE 40 MG/10 ML VIAL IVP SCH (13:45)
[2023-12-10] MEDS: LEVOTHYROXINE 100 MCG TAB PO SCH (06:25)
--- NOTE | 2023-12-10 07:37 | XR ---
EXAMINATION TYPE: XR chest 2V DATE OF EXAM: 12/10/2023 HISTORY: Shortness of breath. COMPARISON: 12/09/2023 TECHNIQUE: Single view of the chest is submitted. FINDINGS: Demonstrated are scattered senescent parenchymal change. There is patchy basilar densities may reflect atelectasis and/or infiltrate. Small effusions are diff icult to exclude. NG tube has been removed. The heart is stable. Hilar and mediastinal structures are within normal limits. Degenerative changes are seen of the dorsal spine. IMPRESSION: 1. There is patchy basilar densities may reflect atelectasis and/or infiltrate. Small effusions are difficult to exclude. NG tube has been removed.
--- NOTE | 2023-12-10 08:00 | P.PN ---
Subjective Progress Note Date: 12/10/23 Principal diagnosis: Giant Paraesophageal Hernia, GERD, esophagitis. History of GI bleed and gastritis, hyperlipidemia, morbid obesity, osteoarthritis, asthma, hypothyroid, questionable TIA in 1998, never smoker POD #2 esophagogastroduodenoscopy, robotic assisted laparoscopic giant paraesophageal hernia repair with Phasix Mesh, Phillip Fundoplication The patient was seen and examined this morning with Dr. Gardner sitting up in bed in no acute distress eating breakfast. She states pain is controlled on current medication regimen, denies shortness of breath. Currently in sinus rhythm to sinus tach, hemodynamically stable. Remains on 2 L nasal cannula, able to achieve 500-750 mL on her incentive spirometry. Was trialed on room air, sats 86%, placed back on 2 LPM NC. NG tube discontinued yesterday, patient able to tolerated liquid diet, able to tolerate soft diet this am. MELANIE drain present, minimal output. Chest x-ray reviewed, labs pending. No other new concerns. Objective - Vital Signs Vital signs: Vital Signs Temp 98.4 F 12/10/23 04:00 Pulse 108 H 12/10/23 04:00 Resp 20 12/10/23 04:00 BP 134/62 12/10/23 04:00 Pulse Ox 94 L 12/10/23 04:00 FiO2 Intake & Output 12/09/23 12/10/23 12/10/23 18:59 06:59 18:59 Intake Total 580 Output Total 430 485 Balance 150 -485 Intake: Oral 580 Output: Drainage 30 10 Abdomen 30 10 Urine 400 475 Other: Voiding Method Indwelling Catheter Toilet Diaper Incontinent # Voids 0 # Bowel Movements 0 - Exam CONSTITUTIONAL: Appears comfortable, cooperative, no acute distress RESPIRATORY: Lungs sounds diminished bilaterally. Respirations even, nonlabored. Currently on 2 L nasal cannula with oxygen saturation 94%. Able to achieve 500-750 mL on incentive spirometry. Strong cough. CARDIOVASCULAR: S1, S2 present. Regular rate and rhythm, sinus rhythm to sinus tach on telemetry. Palpable peripheral pulses bilaterally. No edema present. No calf pain or tenderness noted. SCDs present. GASTROINTESTINAL: Abdomen soft, nontender, nondistended, obese. Active bowel sounds present 4 quadrants. Tolerating diet GENITOURINARY: Continues to void INTEGUMENTARY: Skin is warm and dry, MELANIE drain present with minimal serosanguineous drainage NEUROLOGIC: Cranial nerves II through XII intact MUSKULOSKELETAL: Able to move all extremities, strength equal bilaterally PSYCHIATRIC: Alert, oriented to person place and time - Allied health notes Allied health notes reviewed: nursing - Labs CBC & Chem 7: 12/09/23 07:00 12/09/23 07:00 Labs: Abnormal Lab Results - Last 24 Hours (Table) 12/09/23 12/09/23 Range/Units 07:00 07:00 Neutrophils # 8.5 H (1.3-7.7) k/uL Lymphocytes # 0.8 L (1.0-4.8) k/uL Glucose 133 H (74-99) mg/dL - Imaging and Cardiology Chest x-ray: report reviewed, image reviewed Assessment and Plan Assessment: Giant Paraesophageal Hernia, status post EGD, robotic assisted laparoscopic giant paraesophageal hernia repair with Phasix Mesh, Phillip Fundoplication GERD Esophagitis History of GI bleed and gastritis Hyperlipidemia Morbid obesity Osteoarthritis Asthma Hypothyroid Questionable TIA in 1998 Never smoker Plan: Continue soft diet for 2 weeks Will discontinue MELANIE drain Increase activity, ambulate as tolerated Wean oxygen as tolerated, encourage incentive spirometry use 10 times every hour while awake Continue home medications Pain control with current medication regimen Will discharge to home today vs tomorrow morning if patient able to be removed from oxygen and tolerating diet More recommendations to follow
[2023-12-10] MEDS: METOPROLOL TARTRATE 25 MG TAB PO STA (08:23)
[2023-12-10] MEDS: NON FORMULARY DRUG (Semaglutide [Ozempic] 0.25 MG/0.368 ML Pen.Injctr) SQ SCH (09:52)
[2023-12-10 10:46] LABS: HCT 32.5 % (34.0-46.0); HGB 10.3 gm/dL (11.4-16.0); MCH 30.1 pg (25.0-35.0); MCHC 31.6 g/dL (31.0-37.0); MCV 95.2 fL (80.0-100.0); Mean Platelet Volume 8.8; Platelet Count 161 k/uL (150-450); RBC 3.42 m/uL (3.80-5.40); WBC 9.7 k/uL (3.8-10.6)
[2023-12-10 10:50] LABS: ALT 24 U/L (4-34); AST 32 U/L (14-36); African American GFR (CKD) >90 (>60 ml/min/1.73 sqM); Albumin 3.2 g/dL (3.5-5.0); Alkaline Phosphatase 87 U/L (38-126); Anion Gap 4 mmol/L; Blood Urea Nitrogen 12 mg/dL (7-17); Calcium 9.3 mg/dL (8.4-10.2); Carbon Dioxide 33 mmol/L (22-30); Chloride 98 mmol/L (98-107); Glucose 173 mg/dL (74-99); Non-African American GFR(CKD) 83 (>60 ml/min/1.73 sqM); Potassium 3.5 mmol/L (3.5-5.1); Sodium 135 mmol/L (137-145); Total Bilirubin 0.9 mg/dL (0.2-1.3); Total Protein 5.5 g/dL (6.3-8.2)
--- NOTE | 2023-12-10 16:43 | P.PN ---
Subjective Progress Note Date: 12/10/23 Principal diagnosis: The patient is here postop day #2 for hiatal hernia repair. No new complaints stated. No significant fever or chills stated she is resting comfortably. Pain is nominal. Positive flatus Objective - Vital Signs Vital signs: Vital Signs Temp 97.8 F 12/10/23 15:35 Pulse 73 12/10/23 15:35 Resp 20 12/10/23 15:35 BP 108/62 12/10/23 15:35 Pulse Ox 98 12/10/23 15:35 FiO2 Intake & Output 12/09/23 12/10/23 12/10/23 18:59 06:59 18:59 Intake Total 580 720 Output Total 122 122 3388 Balance 150 -485 -990 Intake: Oral 580 720 Output: Drainage 30 10 10 Abdomen 30 10 10 Urine 655 023 9870 Other: Voiding Method Indwelling Catheter Toilet Toilet Diaper Diaper Incontinent Incontinent # Voids 0 # Bowel Movements 0 0 - Constitutional General appearance: Present: cooperative, no acute distress - Neck Neck: Absent: lymphadenopathy - Respiratory Respiratory: bilateral: CTA - Cardiovascular Rhythm: regular Heart sounds: normal: S1, S2 Abnormal Heart Sounds: Absent: S3 Gallop - Gastrointestinal General gastrointestinal: Present: soft - Neurologic Neurologic: Present: CNII-XII intact - Labs CBC & Chem 7: 12/10/23 08:49 12/10/23 08:49 Labs: Abnormal Lab Results - Last 24 Hours (Table) 12/10/23 12/10/23 Range/Units 08:49 08:49 RBC 3.42 L (3.80-5.40) m/uL Hgb 10.3 L (11.4-16.0) gm/dL Hct 32.5 L (34.0-46.0) % Sodium 135 L (137-145) mmol/L Carbon Dioxide 33 H (22-30) mmol/L Glucose 173 H (74-99) mg/dL Total Protein 5.5 L (6.3-8.2) g/dL Albumin 3.2 L (3.5-5.0) g/dL Assessment and Plan (1) Asthma Current Visit: Yes Status: Acute Code(s): J45.909 - UNSPECIFIED ASTHMA, UNCOMPLICATED SNOMED Code(s): 507919768 (2) GERD (gastroesophageal reflux disease) Current Visit: Yes Status: Acute Code(s): K21.9 - GASTRO-ESOPHAGEAL REFLUX DISEASE WITHOUT ESOPHAGITIS SNOMED Code(s): 876858946 (3) Hypothyroid Current Visit: Yes Status: Acute Code(s): E03.9 - HYPOTHYROIDISM, UNSPECIFIED SNOMED Code(s): 61881251 (4) Hyperlipidemia Current Visit: No Status: Acute Code(s): E78.5 - HYPERLIPIDEMIA, UNSPECIFIED SNOMED Code(s): 70425071 (5) Paraesophageal hernia Current Visit: No Status: Acute Code(s): K44.9 - DIAPHRAGMATIC HERNIA WITHOUT OBSTRUCTION OR GANGRENE SNOMED Code(s): 4091436 Plan: Continue pulmonary toilet. We will continue to follow with surgery. Time with Patient: Less than 30
[2023-12-11] MEDS: PANTOPRAZOLE 40 MG TABLET PO SCH (06:23)
--- NOTE | 2023-12-11 07:38 | XR ---
EXAMINATION TYPE: XR chest 1V portable DATE OF EXAM: 12/11/2023 HISTORY: Shortness of breath. COMPARISON: 12/10/2023 TECHNIQUE: Single view of the chest is submitted. FINDINGS: Demonstrated are scattered senescent parenchymal change. Persistent basilar infiltrates left greater than right. No significant interval change appreciated. The heart is stable. Hilar and mediastinal structures are within normal limits. Degenerative changes are seen of the dorsal spine. IMPRESSION: 1. Persistent basilar infiltrates left greater than right. No significant interval change appreciate d.
--- NOTE | 2023-12-11 08:17 | P.PN ---
Subjective Progress Note Date: 12/11/23 Principal diagnosis: Giant Paraesophageal Hernia, GERD, esophagitis. History of GI bleed and gastritis, hyperlipidemia, morbid obesity, osteoarthritis, asthma, hypothyroid, questionable TIA in 1998, never smoker POD #3 esophagogastroduodenoscopy, robotic assisted laparoscopic giant paraesophageal hernia repair with Phasix Mesh, Phillip Fundoplication The patient was seen and examined this morning with Dr. Gardner sitting up in a recliner in no acute distress eating breakfast. She states pain is controlled on current medication regimen, denies shortness of breath. Currently in sinus rhythm, hemodynamically stable. Currently on room air, able to achieve 500-750 mL on her incentive spirometry. Oxygen saturation 90% on room air at rest, will ambulate patient to determine if oxygen is needed at home with activity due to her postoperative status/asthma history. Patient able to tolerated soft diet. MELANIE drain discontinued yesterday. Chest x-ray reviewed. No other new concerns. Objective - Vital Signs Vital signs: Vital Signs Temp 98.4 F 12/11/23 03:16 Pulse 91 12/11/23 03:16 Resp 18 12/11/23 03:16 BP 117/75 12/11/23 03:16 Pulse Ox 97 12/11/23 03:16 FiO2 Intake & Output 12/10/23 12/11/23 12/11/23 18:59 06:59 18:59 Intake Total 1320 550 Output Total 1710 0 Balance -390 550 Weight 99.4 kg Intake: IV 10 0.9 10 Oral 1320 540 Output: Drainage 10 Abdomen 10 Urine 1700 0 Other: Voiding Method Toilet Toilet Diaper Diaper Incontinent Incontinent # Voids 1 # Bowel Movements 0 - Exam CONSTITUTIONAL: Appears comfortable, cooperative, no acute distress RESPIRATORY: Lungs sounds diminished bilaterally. Respirations even, nonlabored. Currently on room air with oxygen saturation 90%. Able to achieve 500-750 mL on incentive spirometry. Strong cough. CARDIOVASCULAR: S1, S2 present. Regular rate and rhythm, sinus rhythm on telemetry. Palpable peripheral pulses bilaterally. No edema present. No calf pain or tenderness noted. SCDs present. GASTROINTESTINAL: Abdomen soft, nontender, nondistended, obese. Active bowel sounds present 4 quadrants. Tolerating soft diet. Positive flatus GENITOURINARY: Continues to void INTEGUMENTARY: Skin is warm and dry NEUROLOGIC: Cranial nerves II through XII intact MUSKULOSKELETAL: Able to move all extremities, strength equal bilaterally PSYCHIATRIC: Alert, oriented to person place and time - Allied health notes Allied health notes reviewed: nursing - Labs CBC & Chem 7: 12/10/23 08:49 12/10/23 08:49 Labs: Abnormal Lab Results - Last 24 Hours (Table) 12/10/23 12/10/23 Range/Units 08:49 08:49 RBC 3.42 L (3.80-5.40) m/uL Hgb 10.3 L (11.4-16.0) gm/dL Hct 32.5 L (34.0-46.0) % Sodium 135 L (137-145) mmol/L Carbon Dioxide 33 H (22-30) mmol/L Glucose 173 H (74-99) mg/dL Total Protein 5.5 L (6.3-8.2) g/dL Albumin 3.2 L (3.5-5.0) g/dL - Imaging and Cardiology Chest x-ray: report reviewed, image reviewed Assessment and Plan Assessment: Giant Paraesophageal Hernia, status post EGD, robotic assisted laparoscopic giant paraesophageal hernia repair with Phasix Mesh, Phillip Fundoplication GERD Esophagitis History of GI bleed and gastritis Hyperlipidemia Morbid obesity Osteoarthritis Asthma Hypothyroid Questionable TIA in 1998 Never smoker Plan: Continue soft diet for 2 weeks Will check room air oxygen sats with ambulation, if <88% will need oxygen at home for short time Increase activity, ambulate as tolerated Wean oxygen as tolerated, encourage incentive spirometry use 10 times every hour while awake Continue home medications Pain control with current medication regimen Will discharge to home today with oxygen if necessary More recommendations to follow
--- NOTE | 2023-12-11 08:54 | P.PN ---
Subjective Progress Note Date: 12/11/23 This is a 63-year-old female who was admitted for an EGD, robotic assisted laparoscopic giant paraesophageal hernia repair, and garcia fundoplication with Dr. Gardner. She is post-op day #3. Patient seen this morning sitting up in chair at bedside. She is still on 3L of oxygen via nasal cannula. Vitals are stable. Patient did report increased pain last night, but it tolerating it. Objective - Vital Signs Vital signs: Vital Signs Temp 97.7 F 12/11/23 08:01 Pulse 84 12/11/23 08:01 Resp 18 12/11/23 08:01 BP 113/76 12/11/23 08:01 Pulse Ox 96 12/11/23 08:20 FiO2 Intake & Output 12/10/23 12/11/23 12/11/23 18:59 06:59 18:59 Intake Total 1320 550 260 Output Total 1710 0 Balance -390 550 260 Weight 99.4 kg Intake: IV 10 20 0.9 10 Invasive Line 1 10 Invasive Line 2 10 Oral 1320 540 240 Output: Drainage 10 Abdomen 10 Urine 1700 0 Other: Voiding Method Toilet Toilet Diaper Diaper Incontinent Incontinent # Voids 1 # Bowel Movements 0 - Constitutional General appearance: Present: cooperative, no acute distress - EENT Eyes: Present: PERRLA - Neck Neck: Present: normal ROM. Absent: lymphadenopathy, rigidity - Respiratory Respiratory: bilateral: CTA - Cardiovascular Rhythm: regular Heart sounds: normal: S1, S2 - Gastrointestinal General gastrointestinal: Present: soft. Absent: tenderness - Integumentary Integumentary: Present: normal, normal turgor - Psychiatric Psychiatric: Present: A&O x's 3 - Labs CBC & Chem 7: 12/10/23 08:49 12/10/23 08:49 Labs: Abnormal Lab Results - Last 24 Hours (Table) 12/10/23 12/10/23 Range/Units 08:49 08:49 RBC 3.42 L (3.80-5.40) m/uL Hgb 10.3 L (11.4-16.0) gm/dL Hct 32.5 L (34.0-46.0) % Sodium 135 L (137-145) mmol/L Carbon Dioxide 33 H (22-30) mmol/L Glucose 173 H (74-99) mg/dL Total Protein 5.5 L (6.3-8.2) g/dL Albumin 3.2 L (3.5-5.0) g/dL Assessment and Plan (1) Paraesophageal hernia Current Visit: No Status: Acute Code(s): K44.9 - DIAPHRAGMATIC HERNIA WITHOUT OBSTRUCTION OR GANGRENE SNOMED Code(s): 1617848 (2) Hyperlipidemia Current Visit: No Status: Acute Code(s): E78.5 - HYPERLIPIDEMIA, UNSPECIFIED SNOMED Code(s): 30902783 (3) Asthma Current Visit: Yes Status: Acute Code(s): J45.909 - UNSPECIFIED ASTHMA, UNCOMPLICATED SNOMED Code(s): 147827464 (4) GERD (gastroesophageal reflux disease) Current Visit: Yes Status: Acute Code(s): K21.9 - GASTRO-ESOPHAGEAL REFLUX DISEASE WITHOUT ESOPHAGITIS SNOMED Code(s): 852142333 (5) Hypothyroid Current Visit: Yes Status: Acute Code(s): E03.9 - HYPOTHYROIDISM, UNSPECIFIED SNOMED Code(s): 06524429 Plan: Plan to check for need for home oxygen today. Patient may be discharged home from medical standpoint once need for home oxygen is clarified and surgeon clears her. Patient seen and evaluated by nurse practitioner, physician in agreement with plan
[2023-12-11 10:15] LABS: HCT 30.2 % (34.0-46.0); HGB 9.4 gm/dL (11.4-16.0); MCH 29.1 pg (25.0-35.0); MCHC 31.1 g/dL (31.0-37.0); MCV 93.7 fL (80.0-100.0); Mean Platelet Volume 8.9; Platelet Count 160 k/uL (150-450); RBC 3.23 m/uL (3.80-5.40); WBC 8.2 k/uL (3.8-10.6)
[2023-12-11 10:25] LABS: ALT 23 U/L (4-34); AST 30 U/L (14-36); African American GFR (CKD) >90 (>60 ml/min/1.73 sqM); Albumin 3.5 g/dL (3.5-5.0); Alkaline Phosphatase 108 U/L (38-126); Anion Gap 6 mmol/L; Blood Urea Nitrogen 13 mg/dL (7-17); Calcium 9.8 mg/dL (8.4-10.2); Carbon Dioxide 32 mmol/L (22-30); Chloride 98 mmol/L (98-107); Glucose 119 mg/dL (74-99); Non-African American GFR(CKD) >90 (>60 ml/min/1.73 sqM); Potassium 3.9 mmol/L (3.5-5.1); Sodium 136 mmol/L (137-145); Total Bilirubin 0.9 mg/dL (0.2-1.3); Total Protein 5.9 g/dL (6.3-8.2)
[2023-12-11 11:21] VITALS: BP 117/77; RESP 22; TEMP 98.8
[2023-12-11] MEDS: ACETAMINOPHEN TAB 500 MG TAB PO PRN (11:21)
[2023-12-11 11:36] VITALS: PULSE 88
--- NOTE | 2023-12-11 13:21 | P.DS ---
Providers Date of admission: 12/08/23 06:32 Expected date of discharge: 12/11/23 Attending physician: Mitch Gardner MD Consults: 12/08/23 13:55 Consult Physician Routine Consulting Provider: Doc Escobar Consult Reason/Comments: med mgmt; known to you Do you want consulting provider notified?: Yes Primary care physician: Doc Escobar Hospital Course: FINAL DIAGNOSIS: Giant Paraesophageal Hernia GERD Esophagitis History of GI bleed and gastritis Hyperlipidemia Morbid obesity Osteoarthritis Asthma Hypothyroid Questionable TIA in 1998 Never smoker PRINCIPAL PROCEDURE: Esophagogastroduodenoscopy Robotic assisted laparoscopic giant paraesophageal hernia repair with Phasix Mesh Phillip Fundoplication HISTORY OF PRESENT ILLNESS: This is a 63-year-old female who follows outpatient with Dr. Escobar for primary care. She had been exhibiting symptoms of early satiety, fullness, and chest pressure with oral intake. She was found to have a giant paraesophageal hernia on CT scan. She self-referred to Dr. Wang from cardiothoracic surgery. She was recommended to undergo paraesophageal hernia repair. The case was discussed between Dr. Wang and Dr. Gardner, and the recommendation was made for robotic assisted laparoscopic paraesophageal hernia repair by Dr. Gardner versus open approach by Dr. Wang. The usual perioperative course was discussed in detail with the patient, all risks and benefits were explained, all questions were answered, and consent was obtained to proceed with surgery. The patient was scheduled for surgery at the earliest possible date after obtaining cardiac clearance as well as GI clearance due to chronic constipation. HOSPITAL COURSE: The patient was brought to the hospital on 12/08/23, taken to the preoperative area, prepared in the usual fashion, and subsequently taken to the operating room where Dr. Gardner performed EGD and robotic assisted laparoscopic paraesophageal hernia repair. Upon completion of surgery the patient was extubated and taken to the recovery room for further monitoring. Eventually she was admitted to 3 S. cardiac stepdown unit for further hemodynamic monitoring. MELANIE drain was discontinued the day after surgery. NG tube was taken out, upper GI demonstrated no leak and the patient was started on clear liquid diet. She was advanced to soft foods which she tolerated well. Her oxygen was titrated down although she did still require 2 L nasal cannula with activity, she was tolerating oral soft diet, her pain was controlled, and she was ready to be discharged to home with [facility] on postoperative day #2. She received written and verbal instruction regarding her medications, activity restrictions, signs and symptoms requiring physician notification, and follow-up appointments. Patient Condition at Discharge: Stable Plan - Discharge Summary Discharge Rx Participant: No New Discharge Prescriptions: New Acetaminophen Tab [Tylenol] 1,000 mg PO Q6HR PRN tab PRN Reason: Fever And/ Or Pain Continue DULoxetine HCL [Cymbalta] 120 mg PO DAILY Montelukast Sodium [Singulair] 10 mg PO HS Loratadine [Claritin] 10 mg PO DAILY Verapamil HCl [Verapamil ER] 120 mg PO DAILY Albuterol Inhaler [Ventolin Hfa Inhaler] 1 puff INHALATION RT-Q6H PRN PRN Reason: Shortness Of Breath Levothyroxine Sodium 100 mcg PO DAILY Pantoprazole [Protonix] 40 mg PO DAILY Atorvastatin Calcium [Lipitor] 80 mg PO HS Aspirin 81 mg PO DAILY Fiber 1 tab PO DAILY Potassium Chloride ER [K-Dur 20] 20 meq PO DAILY Furosemide [Lasix] 40 mg PO DAILY buPROPion XL [Wellbutrin XL] 300 mg PO DAILY Fluticasone Propion/Salmeterol [Advair Hfa 115-21 Mcg Inhaler] 2 puff INHALATION RT-BID Docusate [Colace] 100 mg PO BID Vitamin D 1 tab PO DAILY Vitamin B12 1 tab PO DAILY Multivit/Iron Sulf/Folic Acid [Multivitamin with Iron] 1 each PO DAILY Semaglutide [Ozempic] 0.5 mg SQ WE Discharge Medication List DULoxetine HCL [Cymbalta] 120 mg PO DAILY 06/30/15 [History] Loratadine [Claritin] 10 mg PO DAILY 06/30/15 [History] Montelukast Sodium [Singulair] 10 mg PO HS 06/30/15 [History] Verapamil HCl [Verapamil ER] 120 mg PO DAILY 06/30/15 [History] Albuterol Inhaler [Ventolin Hfa Inhaler] 1 puff INHALATION RT-Q6H PRN 07/14/19 [History] Levothyroxine Sodium 100 mcg PO DAILY 07/14/19 [History] Atorvastatin Calcium [Lipitor] 80 mg PO HS 09/30/23 [History] Fluticasone Propion/Salmeterol [Advair Hfa 115-21 Mcg Inhaler] 2 puff INHALATION RT-BID 09/30/23 [History] Furosemide [Lasix] 40 mg PO DAILY 09/30/23 [History] Pantoprazole [Protonix] 40 mg PO DAILY 09/30/23 [History] Potassium Chloride ER [K-Dur 20] 20 meq PO DAILY 09/30/23 [History] buPROPion XL [Wellbutrin XL] 300 mg PO DAILY 09/30/23 [History] Aspirin 81 mg PO DAILY 11/12/23 [History] Docusate [Colace] 100 mg PO BID 11/12/23 [History] Fiber 1 tab PO DAILY 11/12/23 [History] Multivit/Iron Sulf/Folic Acid [Multivitamin with Iron] 1 each PO DAILY 11/12/23 [History] Vitamin B12 1 tab PO DAILY 11/12/23 [History] Vitamin D 1 tab PO DAILY 11/12/23 [History] Semaglutide [Ozempic] 0.5 mg SQ WE 12/04/23 [History] Acetaminophen Tab [Tylenol] 1,000 mg PO Q6HR PRN tab 12/11/23 [Rx] Follow up Appointment(s)/Referral(s): Doc Escobar MD [Primary Care Provider] - [facility] Week [facility] [place] [NON-STAFF] - Mitch Gardner MD [STAFF PHYSICIAN] - 12/26/23 2:00 pm Patient Instructions/Handouts: *Surgery [facility] - Scopalamine Patch Instructions Activity/Diet/Wound Care/Special Instructions: DISCHARGE INSTRUCTIONS: 1. No driving for 1 week, or until physician gives their ok. 2. No lifting, pushing, or pulling more than 10 pounds until you follow-up with the surgeon 3. Continue pain control per as needed orders 4. Continue with incentive spirometry and splinting until otherwise directed by the physician. 5. Remove all dressings tomorrow and shower daily. 6. Routine incision care. No powders, lotions, ointments on incisions. 7. Please call surgeon/[employer] REPAIR TECHNICIAN for temp greater than 101 F or purulent drainage from incisions. 8. Soft diet only until you see the surgeon. Small bites, chew your food very well, stay sitting upright for 1-2 hours after eating Discharge Disposition: HOME WITH HOME HEALTH SERVICES
== END 2023-12-11 15:35 | disposition home health service (06) | DRG 327 ==
LOC: 2ORMAIN 12-08 06:32 → 3SCARD 12-08 16:17
PROVIDERS: ADMIT Thoracic Surgery (Cardiothoracic Vascular Surgery); ATTEND Thoracic Surgery (Cardiothoracic Vascular Surgery)
PROC: 8E0W4CZ Robotic Assisted Procedure of Trunk Region, Percutaneous Endoscopic Approach (ICD-10-PCS; principal; 2023-12-08 07:30)
PROC: 0DJ08ZZ Inspection of Upper Intestinal Tract, Via Natural or Artificial Opening Endoscopic (ICD-10-PCS; principal; 2023-12-08 07:30)
PROC: 0BUT4JZ Supplement Diaphragm with Synthetic Substitute, Percutaneous Endoscopic Approach (ICD-10-PCS; principal; 2023-12-08 07:30)
PROC: 0DV44ZZ Restriction of Esophagogastric Junction, Percutaneous Endoscopic Approach (ICD-10-PCS; principal; 2023-12-08 07:30)
DX: K44.9 Diaphragmatic hernia without obstruction or gangrene (principal); Z68.41 Body mass index [BMI] 40.0-44.9, adult; E66.01 Morbid (severe) obesity due to excess calories; E03.9 Hypothyroidism, unspecified; F32.A Depression, unspecified; J45.909 Unspecified asthma, uncomplicated; K21.00 Gastro-esophageal reflux disease with esophagitis, without bleeding; F41.9 Anxiety disorder, unspecified; E78.5 Hyperlipidemia, unspecified; R32 Unspecified urinary incontinence; M19.90 Unspecified osteoarthritis, unspecified site; Z79.82 Long term (current) use of aspirin; Z79.890 Hormone replacement therapy; Z79.85 Long-term (current) use of injectable non-insulin antidiabetic drugs; Z79.51 Long term (current) use of inhaled steroids; Z79.899 Other long term (current) drug therapy; Z98.1 Arthrodesis status; Z88.0 Allergy status to penicillin
CPT/HCPCS: 71045; 71046; 74240; 80048; 80053; 85025; 85027; 94640; 94760

== ENCOUNTER → 2023-12-05 | Outpatient (CLI) | payer MEDICARE ==
[2023-12-05 13:03] LABS: INR 0.9 (<1.2); Partial Thromboplastin Time 25.4 sec (22.0-30.0)
[2023-12-05 15:16] LABS: Appearance,Urine Clear (Clear); Bilirubin,Urine Negative (Negative); Blood,Urine Negative (Negative); Color,Urine Yellow (Yellow); Ketones,Urine Negative (Negative); Nitrite,Urine Negative (Negative); PH, Urine 6.5; Specific Gravity,Urine 1.006 (1.001-1.030); Urobilinogen,Urine 0.2 E.U./DL
[2023-12-05 15:19] LABS: Blood Urea Nitrogen 11.5 mg/dL (9.0-27.0); Carbon Dioxide 29.4 mmol/L (21.6-31.8); Chloride 98 mmol/L (96-109); Glucose 78 mg/dL (70-110); Potassium 3.7 mmol/L (3.5-5.5); Sodium 142 mmol/L (135-145)
[2023-12-05 15:28] LABS: Basophils # (A) 0.05 X 10*3/uL (0.00-0.10); Basophils % (A) 0.7 %; Eosinophils # (A) 0.09 X 10*3/uL (0.04-0.35); Eosinophils % (A) 1.3 %; HCT 45.8 % (37.2-46.3); HGB 14.5 g/dL (12.0-15.0); Lymphocytes # (A) 1.62 X 10*3/uL (0.90-5.00); Lymphocytes % (A) 23.7 %; MCH 29.7 pg (27.0-32.0); MCHC 31.7 g/dL (32.0-37.0); MCV 93.7 FL (80.0-97.0); Mean Platelet Volume 10.9 FL (9.5-12.2); Monocytes # (A) 0.46 X 10*3/uL (0.20-1.00); Monocytes % (A) 6.7 %; NRBC Per 100 WBC 0 X 10*3/uL (0.00-0.01); Neutrophils # (A) 4.61 X 10*3/uL (1.80-7.70); Neutrophils % (A) 67.5 %; Platelet Count 243 X 10*3/uL (140-440); RBC 4.89 X 10*6/uL (4.10-5.20); WBC 6.84 X 10*3/uL (4.50-10.00)
== END | disposition home or self-care (01) ==
LOC: LABPAT 11:23
PROVIDERS: ATTEND Thoracic Surgery (Cardiothoracic Vascular Surgery)
DX: Z01.818 Encounter for other preprocedural examination (principal); K44.9 Diaphragmatic hernia without obstruction or gangrene
CPT/HCPCS: 36415; 80051; 81003; 82565; 82947; 84520; 85025; 85610; 85730; 86850; 86900; 86901; 87086; 93005

== ENCOUNTER → 2024-04-07 | Outpatient (CLI) | payer MEDICARE ==
--- NOTE | 2024-04-08 09:26 | MM ---
Reason for Exam: Screening (asymptomatic). Last mammogram was performed 6 year(s) and 4 month(s) ago. Patient History: Menarche at age 12. Patient has no children. Postmenopausal. Other cancer. Patient used Estrogen for 1 year. Patient used Progesterone for 1 year. Risk Values: Yolanda 5 year model risk: 1.9%. NCI Lifetime model risk: 8.4%. Prior Study Comparison: 07/17/2015 Bilateral Screening Mammogram, [facility]. 02/16/2016 Right Diagnostic Mammogram, [facility]. 11/17/2017 Bilateral Diagnostic Mammogram, [facility]. Tissue Density: The breasts are almost entirely fatty. Findings: Analyzed By CAD. There is no suspicious group of microcalcifications or new suspicious mass in either breast. Overall Assessment: Negative, BI-RAD 1 Management: Screening Mammogram of both breasts in 1 year. . Patient should continue monthly self-breast exams. A clinical breast exam by your physician is recommended on an annual basis. This exam should not preclude additional follow-up of suspicious palpable abnormalities. Note on Yolanda scores and lifetime risk: 1. A Yolanda score greater than 3% is considered moderate risk. If this is the case, consider specialist referral to assess eligibility for a risk reducing agent. 2. If overall lifetime risk for the development of breast cancer is 20% or higher, the patient may qualify for future screening with alternating mammogram and breast MRI. [facility], , 04/08/2024 9:22 AM. Electronically signed and approved by: Los Forbes M.D. [facility]iolog[facility]
== END | disposition home or self-care (01) ==
LOC: RADMAMWWP 11:22
PROVIDERS: ATTEND Family Medicine
CPT/HCPCS: 77067